=== PATIENT | female | born 1950 | race Caucasian/White ===

== ENCOUNTER → 2018-04-29 12:12 | Outpatient (CLI) | payer MEDICARE, MEDICAID, SELFPAY ==
--- NOTE | 2018-04-29 12:17 | BI_ITS ---
MAMMOGRAPHY - BILATERAL SCREENING REASON FOR EXAM: Female, 67 years old. Routine annual screening examination. PERTINENT HISTORY: Grandmother with breast cancer. TECHNIQUE: Digital bilateral breast zuleika (3D mammographic acquisition) in the CC and MLO projections. 2-D mediolateral oblique (MLO) and craniocaudad (CC) views of both breasts were obtained. CAD: Full Field Digital Mammography with Computer Added Detection was performed. COMPARISON: None. Baseline examination. FINDINGS: Breast Composition: There are scattered areas of fibroglandular density. There are no dominant masses or suspicious calcifications. Small benign-appearing bilateral axillary lymph nodes. A tissue clip marker is seen in the deep inferior portion of the left breast. No other significant abnormalities are identified. BI/SCREENING MAMM (CAD), BILAT IMPRESSION: Negative screening mammogram. Yearly followup mammogram recommended. (A) ASSESSMENT CATEGORY: BIRADS Category 2: Benign. A letter regarding these results will be sent to the patient by the facility within 30 days. Approximately 10% of breast cancers are not detected by mammography. A normal mammogram should not delay biopsy of a clinically suspicious abnormality. [id number] Electronically Signed: Heriberto Otero MD at 13:39 EDT Tel [phone], Service support ,
--- NOTE | 2018-04-29 12:46 | BD_ITS ---
STUDY: DUAL ENERGY X-RAY ABSORPTIOMETRY / DXA REASON FOR EXAM: Female, 67 years old. The patient is postmenopausal. Loss of height. TECHNIQUE: Bone Mineral Density (BMD) measurements of lumbar spine and bilateral hips were obtained. COMPARISON: None. FINDINGS: Lumbar Spine (L1-L4): g/cm2 (1.292) / T-score (0.8) / Z-score (2.4) Findings are suggestive of normal bone density with a low fracture risk. Left Femur Total: g/cm2 (0.829) / T-score (-1.4) / Z-score (-0.2) Left Femoral Neck: g/cm2 (0.751) / T-score (-2.1) / Z-score (-0.6) Right Femur Total: g/cm2 (0.876) / T-score (-1.0) / Z-score (0.2) Right Femoral Neck: g/cm2 (0.785) / T-score (-1.8) / Z-score (-0.3) BD/Dexa Bone Density Study IMPRESSION: The patient is considered osteopenic as outlined below according to World Obie Organization (WHO) criteria with a moderate fracture risk. . Reference Information: The T-score is the number of standard deviations above or below the standard which is normal for young adults at their peak bone mineral density. The World Health Organization (WHO) interprets the T-scores as follows: Above -1 Normal bone density Between -1 and -2.5 Osteopenia Equal to / or below -2.5 Osteoporosis As a practical clinical guideline, osteopenia may be graded as follows: Mild -1 through -1.5 Moderate -1.6 through -2.0 Severe -2.1 through -2.4 The Z-score is the number of standard deviations above or below age-matched controls. A Z-score of less than -1.5 would be considered abnormal. References: 1. NIH Osteoporosis and Related Bone Diseases http://www.osteo.org 2. International Society for Clinical Densitometry http://www.iscd.org 3. National Osteoporosis Foundation http://www.nof.org Electronically Signed: Heriberto Otero MD at 8:44 EDT Tel [phone], Service support ,
== END ==
PROVIDERS: Family Provider Family Medicine; PCP Family Medicine; Visit Provider Nurse Practitioner Women's Health
DX: Z12.31 Encounter for screening mammogram for malignant neoplasm of breast (principal); Z78.0 Asymptomatic menopausal state
CPT/HCPCS: 77063; 77067; 77080

== ENCOUNTER → 2018-11-18 | Outpatient (CLI) | payer MEDICARE, MEDICAID, SELFPAY ==
--- NOTE | 2018-11-18 08:30 | RAD_ITS ---
STUDY: X-RAY - ESOPHAGUS (BARIUM SWALLOW) WITH FLUOROSCOPY REASON FOR EXAM: Female, 68-year-old.. Dysphagia. TECHNIQUE: 18 view(s) of the esophagus were obtained following swallowing of barium. FLUOROSCOPY TIME (if supplied): (0:33) minutes/seconds COMPARISON: None. FINDINGS: There is no demonstrated esophageal foreign body. There is no demonstrated stricture or mucosal abnormality. There is a very small sliding hiatal hernia with gastroesophageal reflux. The patient ingested a 12 mm tablet of barium without any difficulty. Normal visualized aortic arch and descending thoracic aorta. Normal visualized pulmonary parenchyma. Normal visualized osseous structures of the thorax. RAD/Esophagus Only IMPRESSION: Small sliding hiatal hernia with gastric esophageal reflux. Electronically Signed: Heriberto Otero, at 15:26 EDT , Service support ,
== END | disposition home or self-care (01) ==
LOC: RAD 08:23
PROVIDERS: Family Provider Family Medicine; PCP Family Medicine; Referring Provider Nurse Practitioner Adult Health; Visit Provider Nurse Practitioner Adult Health
DX: R13.12 Dysphagia, oropharyngeal phase (principal)
CPT/HCPCS: 74220

== ENCOUNTER → 2019-09-14 | Outpatient (CLI) | payer MEDICARE, MEDICAID, SELFPAY ==
[2017-10-23 08:53] VITALS: BMI 34.0
== END | disposition home or self-care (01) ==
LOC: LABSPEC 13:02
PROVIDERS: PCP Family Medicine; Visit Provider Family Medicine
DX: R30.0 Dysuria (principal); R50.9 Fever, unspecified
CPT/HCPCS: 87086; 87088

== ENCOUNTER → 2019-11-20 15:00 | Outpatient (CLI) | payer MEDICARE, MEDICAID, SELFPAY ==
--- NOTE | 2019-11-20 15:03 | CT_ITS ---
STUDY: CT ABDOMEN AND PELVIS WITH CONTRAST REASON FOR EXAM: Female, 69 years old. LLQ PAIN SHARP INTO GROIN RADIATION DOSAGE (If Supplied By Facility): CTDIvol = ( 17.745 ) mGy, DLP = ( 904.03 ) mGycm TECHNIQUE: Transaxial images were obtained from the dome of the diaphragm to the symphysis pubis with oral contrast. Oral and amp; IV Readi-CAT and amp; 100mL Isovue-300 was administered. Sagittal and coronal images were reconstructed. Individualized dose optimization techniques were used for this CT. COMPARISON: None. FINDINGS: The visualized lung bases are unremarkable. The visualized portions of the heart are within normal limits. There is decreased attenuation of the liver consistent with steatosis. The patient is status post cholecystectomy. Normal spleen. Normal pancreas. Normal bilateral adrenal glands. Normal right kidney. Normal left kidney. There is a small hiatal hernia. Normal small intestine. Normal colon. The appendix is visualized and appears normal. Normal abdominal aorta. Normal inferior vena cava. There is borderline retroperitoneal lymphadenopathy with enlarged nodes no greater than 10mm in the short axis diameter. Normal urinary bladder. There is a 3.7 cm x 2.9 cm cyst in the right ovary. Findings suggestive of a 3.1 cm x 2.8 cm fibroid in the lower uterine segment. Normal abdominal wall. There are diffuse degenerative changes of the visualized lumbar spine. Grade 1 spondylolisthesis of L5 on S1 and spondylolysis of L5 vertebrae. CT/Abdomen/Pelvis WITH Contrast IMPRESSION: Fatty infiltration of the liver. 3.7 cm x 2.9 cm right ovarian cyst. Fatty infiltration of the liver. Electronically Signed: Heriberto Otero, at 15:36 EDT , Service support ,
[2019-11-20 15:25] LABS: CREATININE FINGERSTICK 0.8 mg/dL (0.55-1.02)
== END ==
PROVIDERS: PCP Family Medicine; Referring Provider Family Medicine; Visit Provider Family Medicine
DX: R10.814 Left lower quadrant abdominal tenderness (principal)
CPT/HCPCS: 74177; Q9967

== ENCOUNTER → 2020-08-11 11:46 | Outpatient (CLI) | payer MEDICARE, MEDICAID, SELFPAY ==
--- NOTE | 2020-08-11 | EMB_PTH ---
PATIENT: SORAYA RAY LOC: [facility]#:[id number] AGE/SX: 74/F ROOM: RE08/11/[address]: CAROL Phillips : 1950 BED: DIS: SPEC #: [id number] RECD: 08/11/20 14:47 STATUS: CARMEN DYAN #: [id number] GENEVA: 08/11/20 00:[address]: Aura Brownlee NP DEPT: SURGICAL PATHOLOGY RECD BY: Ashley Ruelas ENTERED: 08/12/20 06:42 SP TYPE: ENDOM BX/C ENRIKE DR: Dr. Aman Umana MD Tissues: Endometrium, NOS Procedures: Surgery Specimen Level IV HEADER OPERATION: Endometrial biopsy PRE-OP DIAGNOSIS: Thickened lining TISSUE SUBMITTED: Endometrial biopsy MICROSCOPIC DIAGNOSIS Endometrium, biopsy: Scant strips of benign endometrium, squamous mucosa and endocervical mucosa. See comment. AM:blair 08/15/2020 COMMENT The specimen primarily consists of blood. Clinical correlation is suggested. MICROSCOPIC DESCRIPTION Slides are reviewed. GROSS DESCRIPTION Received is one container labeled with the patient's name and not further designated. The specimen consists of multiple irregular and elongated fragments of red-holt soft tissue that in aggregate measure 2 x 1 x 0.1 cm. The specimen is totally submitted in one cassette. / AM:blair 08/12/20 TC:5 CPT: 35394
[2020-08-11 11:11] VITALS: BMI 32.7
[2020-08-12 13:46] LABS: Cancer Antigen 125 12.3 U/mL (0.0-38.1); Carcinoembryonic Antigen 1.3 ng/mL (0.0-4.7)
== END ==
PROVIDERS: PCP Family Medicine; Visit Provider Nurse Practitioner Women's Health
DX: R93.89 Abnormal findings on diagnostic imaging of other specified body structures (principal); N83.201 Unspecified ovarian cyst, right side
CPT/HCPCS: 36415; 82378; 86304; 88305

== ENCOUNTER → 2020-09-16 10:19 | Outpatient (CLI) | payer MEDICARE, MEDICAID, SELFPAY ==
[2020-08-11 11:11] VITALS: BMI 32.7
--- NOTE | 2020-09-16 10:21 | US_ITS ---
STUDY: ULTRASOUND OF THE FEMALE PELVIS - COMPLETE REASON FOR EXAM: Female, 70 years old. Ovarian cyst LMP: The patient is postmenopausal. TECHNIQUE: Transabdominal and Transvaginal TECHNICAL QUALITY: Adequate. COMPARISON: Comparison is made with prior CT scan of the abdomen and pelvis dated 11/20/2019. FINDINGS: The uterus is anteverted and is in a midline position. The uterus measures 7 cm x 4.7 cm x 2.9 cm. Normal uterine cervix. The endometrium measures 5 mm in thickness, and is hyperechoic. There is no demonstrated endometrial mass. 2 uterine fibroids are seen. The larger measures 1.6 cm x 1.7 cm x 1.2 cm. The myometrium is of heterogeneous echotexture. I.U.D. - The patient does not have an I.U.D. The right ovary is visualized. The right ovary measures 4.7 cm x 4.6 cm x 3.4 cm. Within it, there is a 4 cm x 4 cm x 3.1 cm cyst. This has increased slightly in size as compared to prior CT scan. There is no visualized right adnexal mass or complex lesion. There is normal arterial and normal venous vascularity. The left ovary is visualized. The left ovary measures 1.6 cm x 2.5 cm x 1 cm. There is no left ovarian cyst or ovarian mass. There is no visualized left adnexal mass or complex lesion. There is normal arterial and normal venous vascularity. There is no fluid in the cul-de-sac. The pre void volume of the bladder was 268 ml. US/Transvaginal Non- IMPRESSION: Heterogeneous appearance of the uterus with 2 fibroids. 4 cm x 4 cm x 3.1 cm right ovarian cyst Electronically Signed: Heriberto Otero MD at 12:25 EST , Service support ,
--- NOTE | 2020-09-16 10:21 | US_ITS ---
STUDY: ULTRASOUND OF THE FEMALE PELVIS - COMPLETE REASON FOR EXAM: Female, 70 years old. Ovarian cyst LMP: The patient is postmenopausal. TECHNIQUE: Transabdominal and Transvaginal TECHNICAL QUALITY: Adequate. COMPARISON: Comparison is made with prior CT scan of the abdomen and pelvis dated 11/20/2019. FINDINGS: The uterus is anteverted and is in a midline position. The uterus measures 7 cm x 4.7 cm x 2.9 cm. Normal uterine cervix. The endometrium measures 5 mm in thickness, and is hyperechoic. There is no demonstrated endometrial mass. 2 uterine fibroids are seen. The larger measures 1.6 cm x 1.7 cm x 1.2 cm. The myometrium is of heterogeneous echotexture. I.U.D. - The patient does not have an I.U.D. The right ovary is visualized. The right ovary measures 4.7 cm x 4.6 cm x 3.4 cm. Within it, there is a 4 cm x 4 cm x 3.1 cm cyst. This has increased slightly in size as compared to prior CT scan. There is no visualized right adnexal mass or complex lesion. There is normal arterial and normal venous vascularity. The left ovary is visualized. The left ovary measures 1.6 cm x 2.5 cm x 1 cm. There is no left ovarian cyst or ovarian mass. There is no visualized left adnexal mass or complex lesion. There is normal arterial and normal venous vascularity. There is no fluid in the cul-de-sac. The pre void volume of the bladder was 268 ml. US/Pelvic (Non ) IMPRESSION: Heterogeneous appearance of the uterus with 2 fibroids. 4 cm x 4 cm x 3.1 cm right ovarian cyst Electronically Signed: Heriberto Otero MD at 12:25 EST , Service support ,
== END ==
PROVIDERS: PCP Family Medicine; Referring Provider Nurse Practitioner Women's Health; Visit Provider Nurse Practitioner Women's Health
DX: N83.201 Unspecified ovarian cyst, right side (principal)
CPT/HCPCS: 76830; 76856

== ENCOUNTER 2020-09-22 11:52 | Outpatient (RCR) | payer MEDICARE, SELFPAY ==
[2020-08-11 11:11] VITALS: BMI 32.7
[2020-09-22] MEDS: COVID-19 VACC, MRNA(PFIZER)/PF 30 MCG/0.3 ML SYRINGE IM (11:10)
[2020-10-13] MEDS: COVID-19 VACC, MRNA(PFIZER)/PF 30 MCG/0.3 ML SYRINGE IM (11:10)
== END 2020-12-20 23:59 ==
LOC: IMMUN 11:52
PROVIDERS: PCP Family Medicine; Visit Provider Family Medicine
DX: Z23 Encounter for immunization (principal)
CPT/HCPCS: 0001A; 0002A; 91300

== ENCOUNTER → 2020-11-17 14:02 | Outpatient (CLI) | payer MEDICARE, MEDICAID, SELFPAY ==
[2020-08-11 11:11] VITALS: BMI 32.7
--- NOTE | 2020-11-17 14:11 | US_ITS ---
STUDY: ULTRASOUND OF THE FEMALE PELVIS - COMPLETE REASON FOR EXAM: Female, 70 years old. ovarian cyst LMP: Menopause TECHNIQUE: Transabdominal and Transvaginal TECHNICAL QUALITY: Adequate. COMPARISON: 09/16/2020 FINDINGS: The uterus is anteverted and is in a midline position. The uterus measures 7.0 x 3.9 x 3.3 cm. Normal uterine cervix. The endometrium measures 4 mm in thickness, and is hyperechoic. There is no demonstrated endometrial mass. 1.2 cm hypoechoic mass within the fundus the uterus consistent with an intramural fibroid. I.U.D. - The patient does not have an I.U.D. The right ovary is visualized. The right ovary measures 4.9 x 4.4 x 4.3 cm. There is no change in 4.0 cm oval anechoic mass with increased through transmission the right ovary consistent with a physiologic cyst, par ovarian cyst, or cystadenoma. Follow-up ultrasound is recommended in one year. There is no visualized right adnexal mass or complex lesion. There is normal arterial and normal venous vascularity. The left ovary is visualized. The left ovary measures 1.1 x 0.8 x 0.5 cm. There is no left ovarian cyst or ovarian mass. There is no visualized left adnexal mass or complex lesion. There is normal arterial and normal venous vascularity. There is no fluid in the cul-de-sac. The pre void volume of the bladder was ml. The post void volume of the bladder was ml. Polycystic ovary disease: No. US/Transvaginal Non- IMPRESSION: No change in the 4.0 cm right ovarian physiologic cyst, par ovarian cyst, or cystadenoma. Follow-up ultrasound is recommended in one year. Electronically Signed: Kip Márquez MD at 9:58 EDT Tel , Service support ,
--- NOTE | 2020-11-17 14:11 | US_ITS ---
STUDY: ULTRASOUND OF THE FEMALE PELVIS - COMPLETE REASON FOR EXAM: Female, 70 years old. ovarian cyst LMP: Menopause TECHNIQUE: Transabdominal and Transvaginal TECHNICAL QUALITY: Adequate. COMPARISON: 09/16/2020 FINDINGS: The uterus is anteverted and is in a midline position. The uterus measures 7.0 x 3.9 x 3.3 cm. Normal uterine cervix. The endometrium measures 4 mm in thickness, and is hyperechoic. There is no demonstrated endometrial mass. 1.2 cm hypoechoic mass within the fundus the uterus consistent with an intramural fibroid. I.U.D. - The patient does not have an I.U.D. The right ovary is visualized. The right ovary measures 4.9 x 4.4 x 4.3 cm. There is no change in 4.0 cm oval anechoic mass with increased through transmission the right ovary consistent with a physiologic cyst, par ovarian cyst, or cystadenoma. Follow-up ultrasound is recommended in one year. There is no visualized right adnexal mass or complex lesion. There is normal arterial and normal venous vascularity. The left ovary is visualized. The left ovary measures 1.1 x 0.8 x 0.5 cm. There is no left ovarian cyst or ovarian mass. There is no visualized left adnexal mass or complex lesion. There is normal arterial and normal venous vascularity. There is no fluid in the cul-de-sac. The pre void volume of the bladder was ml. The post void volume of the bladder was ml. Polycystic ovary disease: No. US/Pelvic (Non ) IMPRESSION: No change in the 4.0 cm right ovarian physiologic cyst, par ovarian cyst, or cystadenoma. Follow-up ultrasound is recommended in one year. Electronically Signed: Kip Márquez MD at 9:58 EDT Tel , Service support ,
== END ==
PROVIDERS: PCP Family Medicine; Referring Provider Nurse Practitioner Women's Health; Visit Provider Nurse Practitioner Women's Health
DX: N83.201 Unspecified ovarian cyst, right side (principal)
CPT/HCPCS: 76830; 76856

== ENCOUNTER 2021-09-12 09:36 | Outpatient (CLI) | payer MEDICARE, SELFPAY ==
--- NOTE | 2021-09-12 09:39 | BI_ITS ---
MAMMOGRAPHY - BILATERAL SCREENING REASON FOR EXAM: Female, 71 years old. Routine annual screening examination. PERTINENT HISTORY: Grandmother with breast cancer. TECHNIQUE: Digital bilateral breast daina (3D mammographic acquisition) in the CC and MLO projections. 2-D mediolateral oblique (MLO) and craniocaudad (CC) views of both breasts were obtained. CAD: Full Field Digital Mammography with Computer Added Detection was performed. COMPARISON: Comparison is made with prior study 04/29/2018. FINDINGS: Breast Composition: There are scattered areas of fibroglandular density. There are no dominant masses or suspicious calcifications. Stable benign-appearing bilateral axillary lymph nodes. No other significant abnormalities are identified. There has been no significant change since the prior study. BI/SCRN MAMM (CAD)W/DAINA BILAT IMPRESSION: Stable bilateral screening mammogram. Yearly follow-up mammogram recommended. (A) ASSESSMENT CATEGORY: BIRADS Category 2: Benign. A letter regarding these results will be sent to the patient by the facility within 30 days. Approximately 10% of breast cancers are not detected by mammography. A normal mammogram should not delay biopsy of a clinically suspicious abnormality. [id number] Electronically Signed: Heriberto Otero MD at 10:39 EST ,
== END 2021-09-12 23:59 | disposition home or self-care (01) ==
LOC: OPBI 09:37
PROVIDERS: PCP Family Medicine; Referring Provider Nurse Practitioner Women's Health; Visit Provider Nurse Practitioner Women's Health
DX: Z12.31 Encounter for screening mammogram for malignant neoplasm of breast (principal)
CPT/HCPCS: 77063; 77067

== ENCOUNTER 2021-10-11 10:11 | Outpatient (CLI) | payer MEDICARE, MEDICAID, SELFPAY ==
[2021-10-11 12:16] LABS: Absolute Lymphocyte Count 1.22 X10^3/uL (0.83-4.51); Absolute Neutrophil Count 4.6 X10^3/uL (2.0-7.7); Basophil# 0.05 X10^3/uL; Basophil% 0.8 % (0-1); Eosinophil# 0.17 X10^3/uL; Eosinophils% 2.6 % (0-5); Hematocrit 42.6 % (37-47); Hemoglobin 13.5 g/dL (12.0-15.0); Lymphocyte # 1.22 X10^3/ul (0.83-4.51); Lymphocyte % 18.6 % (19-41); Mean Corp Hgb Conc 31.7 g/dL (32-36); Mean Corpuscular Hgb 31.6 pg (27.0-32.0); Mean Corpuscular Volume 99.8 fL (81-99); Mean Platelet Vol. 9.7 fl (6.2-12.0); Monocyte# 0.47 X10^3/uL; Monocyte% 7.2 % (0-10); NRBC Flagged by Analyzer 0 % (0-5); Neutrophil # 4.63 X10^3/uL (2.7-7.7); Neutrophil % 70.5 % (47-70); Platelet Count 327 K/mm3 (150-450); RBC Distribution Width CV 12.7 % (11.6-14.6); RBC Distribution Width SD 46.9 fl (35.1-43.9); Red Blood Count 4.27 M/mm3 (4.2-5.4); White Blood Count 6.6 K/mm3 (4.4-11.0)
[2021-10-11 12:45] LABS: Anion Gap 4 (5-15); BUN 14 mg/dL (7-18); BUN/Creat Ratio 17.4 RATIO (10-20); Calcium,Total 8.8 mg/dL (8.5-10.1); Chloride 106 mmol/L (98-107); Cholesterol 260 mg/dL (200); EST Glomerular Filtration Rate 75 mL/min (>60); Est Glom Filt Rate - Afr Amer 91 mL/min (>60); Glucose 90 mg/dL (74-106); High Density Lipoprotein 73 mg/dL; Potassium 4.4 mmol/L (3.5-5.1); Sodium Level 140 mmol/L (136-145); Thyroid Stim Hormone (TSH) 1.08 uIU/mL (0.358-3.74); Triglycerides 191 mg/dL; Very Low Density Lipoprotein 38 mg/dL (5-40)
== END 2021-10-11 23:59 | disposition home or self-care (01) ==
LOC: MFPLAB 10:15
PROVIDERS: PCP Family Medicine; Referring Provider Family Medicine; Visit Provider Family Medicine
DX: Z00.00 Encounter for general adult medical examination without abnormal findings (principal); F32.A Depression, unspecified; E78.00 Pure hypercholesterolemia, unspecified
CPT/HCPCS: 36415; 80048; 80061; 84443; 85025

== ENCOUNTER → 2021-11-22 | Outpatient (CLI) | payer MEDICARE, MEDICAID, SELFPAY ==
[2021-11-22 15:47] LABS: Cholesterol 172 mg/dL (200); High Density Lipoprotein 72 mg/dL; Triglycerides 114 mg/dL; Very Low Density Lipoprotein 23 mg/dL (5-40)
== END | disposition home or self-care (01) ==
LOC: MFPLAB 11:15
PROVIDERS: PCP Family Medicine; Visit Provider Family Medicine
DX: E78.00 Pure hypercholesterolemia, unspecified (principal)
CPT/HCPCS: 36415; 80061

== ENCOUNTER 2021-12-01 12:26 | Emergency (ER) | payer MEDICARE, MEDICAID, SELFPAY ==
[2021-12-01 12:26] VITALS: BP 194/101; PULSE 81; RESP 16; TEMP 36.8; O2SAT 99; BMI 36.6
--- NOTE | 2021-12-01 12:34 | CT_ITS ---
STUDY: CT BRAIN WITHOUT CONTRAST REASON FOR EXAM: Female, 71 years old. Head injury due to a fall. Laceration overlying the posterior aspect of the skull. RADIATION DOSAGE (If Supplied By Facility): CTDIvol = ( 44.99 ) mGy, DLP = ( 829.85 ) mGycm TECHNIQUE: Transaxial CT imaging of the brain was performed without administration of intravenous contrast material. Individualized dose optimization techniques were used for this CT. COMPARISON: No relevant priors. FINDINGS: Minimal soft tissue changes overlying the superior aspect of the right occipital bone. Normal calvarium. There is mild cerebral atrophy with widening of the extra-axial spaces and ventricular dilatation. Normal white matter tracts of the cerebral hemispheres. Normal basal ganglia and thalami. Normal brainstem. Normal cerebellum. There is no intracranial hemorrhage. There are no findings of an acute ischemic infarction. Normal visualized paranasal sinuses. CT/Brain/Head without Contrast IMPRESSION: Chronic involutional changes of the brain. Electronically Signed: Heriberto Otero MD at 13:12 EDT ,
--- NOTE | 2021-12-01 12:34 | CT_ITS ---
STUDY: CT CERVICAL SPINE WITHOUT CONTRAST REASON FOR EXAM: Female, 71 years old. Neck pain/trauma RADIATION DOSAGE (If Supplied By Facility): CTDIvol = ( 21.62 ) mGy, DLP = ( 390.09 ) mGycm TECHNIQUE: High resolution transaxial imaging was performed without contrast material. Sagittal and coronal images were reconstructed. Individualized dose optimization techniques were used for this CT. COMPARISON: None FINDINGS: Normal craniovertebral junction. There are degenerative changes of the anterior atlantoaxial articulation. Normal odontoid process. There is straightening of the normal cervical lordosis. Normal vertebral bodies and posterior osseous elements. C2-3: Normal endplates. Normal disc height and morphology. Normal central canal and intervertebral neuroforamina. C3-4: Moderate degree of disc space narrowing and spondylosis. Uncovertebral arthrosis. Mild to moderate degree of bilateral neural foraminal stenosis. C4-5: Moderate degree of disc space narrowing and spondylosis. Uncovertebral arthrosis. Mild degree of bilateral neural foraminal stenosis. C5-6: Moderate degree of disc space narrowing and spondylosis. No significant stenosis is seen. C6-7: Mild degree of disc space narrowing. No evidence of stenosis. C7-T1: Normal endplates. Normal disc height and morphology. Normal central canal and intervertebral neuroforamina. Scarring at both lung apices. CT/Spine Cervical without Contras IMPRESSION: Multilevel degenerative changes, as described above. Electronically Signed: Heriberto Otero MD at 13:14 EDT ,
--- NOTE | 2021-12-01 13:13 | RAD_ITS ---
STUDY: X-RAY STERNUM REASON FOR EXAM: Female, 71 years old. Fall/pain TECHNIQUE: 2 view(s) of the sternum were obtained. COMPARISON: None. FINDINGS: Normal bilateral sternoclavicular articulations. Normal manubrium. Normal sternomanubrial joint. Normal sternal body and xiphoid process. There is no demonstrated fracture of the sternum. Normal visualized anterior ribs. Normal visualized lungs. The soft tissue structures are unremarkable. RAD/Sternum min 2 Views IMPRESSION: Normal x-ray examination of the sternum. Electronically Signed: Heriberto Otero MD at 14:02 EDT ,
--- NOTE | 2021-12-01 13:15 | ED.VIS.FALL ---
HPI HPI - Fall History of Present Illness Chief Complaint: Fall Informant: patient Occured/Mechanism Occurred: Today Mechanism/Context: Yes same level fall and Yes trip Usually ambulates: Without assistance Pain/Injury Location: head vs. ground Pain Location: head, neck and chest Current Severity: Mild Maximum Severity: Severe Worsened by: nothing Relieved by: nothing Associated Symptoms Associated Symptoms: Negative for Parasthesias, Weakness, Loss of function, Inability to ambulate, Loss of consciousness and Amnesia Narrative Narrative: Patient was letting out a family member's dog, it is a Rottweiler and it was on a line, the dog immediately ran out to michael something and made the line taught, and as it came by her it clipped her legs out from underneath of her and she fell back to her head versus the ground. She was dazed, sustained a laceration to the back of the scalp, she says her neck hurts a little and the middle of her chest hurts a little. She did not lose consciousness, no amnesia, no other pain or injuries. PFSH PFS Medical History Anxiety and depression Arthritis Back problem Breast lump in female Gastrointestinal problem GERD (gastroesophageal reflux disease) IBS (irritable bowel syndrome) Home Medications omeprazole 40 mg capsule,delayed release 40 mg PO QDAY 10/23/17 [History Last Taken Unknown] trazodone 50 mg tablet 50 mg PO QHS PRN 10/06/18 [History Last Taken Unknown] duloxetine 30 mg capsule,delayed release 30 mg PO BID 09/12/21 [History Last Taken Unknown] Allergy/AdvReac Type Severity Reaction Status Date / Time bupropion [From Wellbutrin] Allergy Hives Verified 12/01/21 12:34 Family History Father Heart disease Depression (emotion) Suicide attempt Grandfather Heart disease Sister Arthritis Grandmother Breast cancer Surgical History Hx of cholecystectomy Social History current occupational status: retired Smoking Status: Never smoker alcohol intake: current details: social substance use type: does not use caffeine: Yes what type of physical activity do you participate in: none seatbelt use: always do you feel safe at home: Yes additional social history: sig other- Jeovany DOES NOT USE ASPIRIN DOES USE IBUPROFEN ROS ROS ED Constitutional Constitutional ED: Denies chills or fever(s) Eyes Eyes: Denies change in vision or diplopia ENT ENT ED: Denies ear pain, epistaxis, facial pain or rhinorrhea Cardiovascular Cardiovascular: Reports chest pain; Denies palpitations Respiratory/Chest Respiratory/Chest: Denies cough or dyspnea Gastrointestinal Gastrointestinal: Denies abdominal pain, diarrhea, melena, nausea or vomiting Genitourinary Genitourinary ED: Denies dysuria or hematuria Musculoskeletal Musculoskeletal: Reports neck pain; Denies back pain or extremity pain Integumentary Denies abscess, Abrasions, laceration or rash Neurologic Neurologic: Reports headache(s); Denies confusion, paresthesias or weakness EXAM Physical Exam Const Vital Signs: 12/01/21 12:26 12/01/21 12:34 12/01/21 15:10 Temperature 98.3 F Temperature Source Oral Pulse Rate 81 81 Respiratory Rate 16 16 Respiratory Effort Normal Non-Labored Respiratory Depth Normal Respiratory Pattern Normal Blood Pressure 194/101 H 167/109 H Blood Pressure Mean 132 128 Pulse Ox 99 98 Oxygen Delivery Method Room Air Room Air Positive well nourished and well developed General Appearance ED: well developed and NAD HEENT Reports TM's clear and nasal mucous membranes and turbinates normal HEENT Narrative: Hematoma and tenderness at the occiput with a small partial-thickness laceration, no active bleeding, no depression or crepitance. Mildly tender at the angle of the left mandible, there is no signs of trauma here, no swelling, she has no malocclusion or trismus and is able to open her mouth without any issue. No intraoral or dental injury. No other areas of facial tenderness, midface stable no infraorbital hypoesthesia. trauma Face and Sinus: facial tenderness Tympanic Membrane ED: Yes TM's clear Eyes PERRL and EOMs intact bilaterally Visual Acuity: other Other Details: no entrapment or pain with extraocular movements Neck full ROM and supple Neck Narrative: Mildly tender in the middle of the neck, not at the superior aspect nor at C7-T1, nor below this throughout the midline. Patient was rolled off of the backboard, and C-spine stabilization was maintained throughout the examination, and at the end we placed her in a c-collar. General: tenderness Chest Wall inspection of chest normal and palpation of chest normal Chest: symmetrical chest wall rise and tenderness sternum (Middle without crepitance or deformity or signs of trauma); Negative for crepitus Resp normal respiratory effort and clear to auscultation bilaterally Percussion: other equal BS bilat Cardio no murmurs Rate: regular rate Rhythm: regular rhythm GI normal to inspection, nondistended, normoactive bowel sounds, soft to palpation and non-tender Back/Spine normal ROM Cervical Spine: Negative for cervical spine tenderness Thoracic Spine / Upper Back: Negative for thoracic spinal tenderness Lumbar Spine / Lower Back: Negative for lumbar spinal tenderness Extremity normal to inspection and full ROM General Extremety ED: Negative for tenderness Neuro oriented x3, CN's II-XII intact bilaterally, moves all extremities, no focal motor deficits and no sensory deficits noted Abdirizak Coma Scale: document GCS findings Spontaneous Obeys Commands Oriented 15 Sensorium / Orientation: awake and alert Psych mental status grossly normal and thought process normal Skin Skin Narrative: 1.5 cm partial-thickness curvilinear clean occipital scalp laceration without crepitance or depression Lesions: no lesions Rashes: no rashes MDM MDM MDM Narrative Medical decision making narrative: 2 view x-ray of the sternum and 1 view chest x-ray are normal my interpretation, 5 view x-ray of the left mandible are negative for any acute fractures. I am at a low suspicion for fractures here I do not think she needs a CT of the face and she has no tenderness elsewhere and no midfacial instability/trauma. CT of the head and cervical spine were normal, I was able to clear her neck without difficulty, we reexamined her scalp, she does have a 1.5 cm scalp laceration that we repaired see the procedure note. Radiography Diagnostic Testing: Clinical Impression(s) from Imaging Studies Brain CT 12/01/21 12:34 IMPRESSION: Chronic involutional changes of the brain. Electronically Signed: Heriberto Otero MD at 13:12 EDT , Cervical Spine CT 12/01/21 12:34 IMPRESSION: Multilevel degenerative changes, as described above. Electronically Signed: Heriberto Otero MD at 13:14 EDT , Sternum X-Ray 12/01/21 13:13 IMPRESSION: Normal x-ray examination of the sternum. Electronically Signed: Heriberto Otero MD at 14:02 EDT , Chest X-Ray 12/01/21 13:35 IMPRESSION: No acute abnormality is seen. Electronically Signed: Heriberto Otero MD at 14:03 EDT , Mandible X-Ray 12/01/21 15:50 IMPRESSION: No acute fracture or subluxation. Electronically Signed: Jonn Otto MD at 16:18 EDT , Procedures Lacerations Occipital scalp: Length: 1.5 cm Depth: Skin Shape: Linear (Curvilinear) Prep: Sterile Conditions and Chlorhexadine Laceration repair: Irrigated, Lidocaine with epi (2cc, 1%) and Local Irrigated (ml): 60 Number of Sutures/Vianey: 2 Suture Information: - (Skin vianey) Discharge Plan Triage Chief Complaint: Fall ED Provider: Thom Conde Dx/Rx/DC Orders Clinical Impression: Closed head injury without loss of consciousness, Occipital scalp laceration, Strain of chest wall, Fall from slip, trip, or stumble Instructions: ED Head Injury (Adult), ED Laceration Scalp Stitches or Vianey Prescriptions: No Action omeprazole 40 mg capsule,delayed release(DR/EC) 40 mg PO QDAY RF: 0 trazodone 50 mg tablet 50 mg PO QHS PRNRF: 0 duloxetine 30 mg capsule,delayed release(DR/EC) 30 mg PO BID RF: 0 Primary Care Provider: Nikhil Cheng Referrals: Nikhil Cheng MD [Primary Care Provider] - 5 Days for suture removal Disposition Disposition: Home, Self Care
--- NOTE | 2021-12-01 13:35 | RAD_ITS ---
STUDY: X-RAY CHEST REASON FOR EXAM: Female, 71 years old. Fall, pain TECHNIQUE: Single PA view of the chest. COMPARISON: None. FINDINGS: The lungs are clear and expanded. There is no demonstrated pleural abnormality. Normal size heart. Normal mediastinum and vanessa. Normal visualized pulmonary arteries. There is atherosclerotic tortuosity of the aortic arch and descending thoracic aorta. There are degenerative changes of the visualized thoracic spine. Normal visualized ribs, clavicles, and shoulders. Fecal material is seen in the colon. RAD/Chest 1 View (Portable) IMPRESSION: No acute abnormality is seen. Electronically Signed: Heriberto Otero MD at 14:03 EDT ,
[2021-12-01 15:10] VITALS: BP 167/109; PULSE 81; RESP 16; O2SAT 98
[2021-12-01] MEDS: Lidocaine 1% /Epi 1:100 (20ml) 20 ML Vial INFILT (15:45)
--- NOTE | 2021-12-01 15:50 | RAD_ITS ---
EXAM: XR MANDIBLE COMPLETE, 4 OR MORE VIEWS CLINICAL INDICATION: left mandible injury TECHNIQUE: Frontal, oblique and lateral views of the mandible. This report was created using [employer] report generation technology. COMPARISON: None. FINDINGS: DENTAL: Impacted right mandibular and maxillary third molars. BONES/JOINTS: Unremarkable. No fracture. No subluxation. No sclerotic or destructive changes observed. SOFT TISSUES: Unremarkable. No soft tissue swelling or gas. No radiopaque foreign body. RAD/Mandible Min 4 Views IMPRESSION: No acute fracture or subluxation. Electronically Signed: Jonn Otto MD at 16:18 EDT ,
== END 2021-12-01 17:31 | disposition home or self-care (01) ==
PROVIDERS: Emergency Provider Emergency Medicine; PCP Family Medicine; Visit Provider Emergency Medicine
DX: S01.01XA Laceration without foreign body of scalp, initial encounter (principal); S29.012A Strain of muscle and tendon of back wall of thorax, initial encounter; W18.09XA Striking against other object with subsequent fall, initial encounter; F41.9 Anxiety disorder, unspecified; F32.A Depression, unspecified; Z79.899 Other long term (current) drug therapy; K21.9 Gastro-esophageal reflux disease without esophagitis; K58.9 Irritable bowel syndrome, unspecified; M19.90 Unspecified osteoarthritis, unspecified site
CPT/HCPCS: 12001; 70110; 70450; 71045; 71120; 72125; 99284

== ENCOUNTER → 2022-11-01 | Outpatient (CLI) | payer MEDICARE, MEDICAID, SELFPAY ==
--- NOTE | 2022-11-01 09:21 | BI_ITS ---
MAMMOGRAPHY - BILATERAL SCREENING REASON FOR EXAM: Female, 72 years old. Routine annual screening examination. PERTINENT HISTORY: Grandmother with breast cancer. History of prior left ultrasound-guided breast biopsy. TECHNIQUE: Digital bilateral breast daina (3D mammographic acquisition) in the CC and MLO projections. 2-D mediolateral oblique (MLO) and craniocaudad (CC) views of both breasts were obtained. CAD: Full Field Digital Mammography with Computer Added Detection was performed. COMPARISON: Comparison is made with prior study of September 12, 2021 and April 29, 2018. FINDINGS: Breast Composition: There are scattered areas of fibroglandular density. There are no dominant masses or suspicious calcifications. A tissue clip marker is seen in the deep inferior central portion of the left breast. Stable benign-appearing left axillary lymph nodes. No other significant abnormalities are identified. There has been no significant change since the prior study. BI/SCRN MAMM (CAD)W/DAINA BILAT IMPRESSION: Stable bilateral screening mammogram. Yearly follow-up mammogram recommended. (A) ASSESSMENT CATEGORY: BIRADS Category 2: Benign. A letter regarding these results will be sent to the patient by the facility within 30 days. Approximately 10% of breast cancers are not detected by mammography. A normal mammogram should not delay biopsy of a clinically suspicious abnormality. [id number] Electronically Signed: Heriberto Otero MD at 12:16 EDT ,
== END | disposition home or self-care (01) ==
LOC: OPBI 09:16
PROVIDERS: PCP Family Medicine; Referring Provider Nurse Practitioner Women's Health; Visit Provider Nurse Practitioner Women's Health
DX: Z12.31 Encounter for screening mammogram for malignant neoplasm of breast (principal); Z80.3 Family history of malignant neoplasm of breast
CPT/HCPCS: 77063; 77067

== ENCOUNTER → 2023-04-17 | Outpatient (CLI) | payer MEDICARE, MEDICAID, SELFPAY ==
--- NOTE | 2023-04-17 12:17 | US_ITS ---
INDICATION: pelvic pain EXAMINATION: Ultrasound US Pelvis Non OB Complete With Transvaginal Imaging TECHNIQUE: Transabdominal and transvaginal pelvic ultrasound was performed. Grayscale, spectral waveform, and color flow Doppler evaluation of the adnexa. COMPARISON: Prior study dated: 11/17/2020. FINDINGS: UTERUS: Anteverted. The uterus measures 6.5 x 4.1 x 3.4 cm. Previously noted mass in the fundus of the uterus is not clearly identified at this time. The endometrial stripe measures 3 mm in AP diameter which is within normal limits. RIGHT OVARY: 1.7 x 6.8 x 8.1 cm. There is a large cyst in the right ovary measuring at this time about 7.3 x 6.1 x 7.3 cm. Previously measured 4 cm. There is normal arterial inflow and venous outflow present in the right ovary. LEFT OVARY: Not visualized.. FREE FLUID: None. US/Pelvic w/ Transvaginal IMPRESSION: Right ovarian cyst increased in size since previous examination. Consider MRI with contrast or DIET COUNSELOR consult. Electronically Signed: Fransico Hughes MD at 15:54 EDT ,
== END | disposition home or self-care (01) ==
LOC: OPUS 12:15
PROVIDERS: PCP Family Medicine; Referring Provider Nurse Practitioner Women's Health; Visit Provider Nurse Practitioner Women's Health
DX: N83.201 Unspecified ovarian cyst, right side (principal)
CPT/HCPCS: 76830; 76856

== ENCOUNTER 2023-04-18 12:29 | Outpatient (CLI) | payer MEDICARE, MEDICAID, SELFPAY ==
[2023-04-20 05:08] LABS: Cancer Antigen 125 9.1 U/mL (0.0-38.1); Carcinoembryonic Antigen 0.9 ng/mL (0.0-4.7)
== END 2023-04-18 23:59 | disposition home or self-care (01) ==
LOC: LAB 12:32
PROVIDERS: PCP Family Medicine; Referring Provider Nurse Practitioner Women's Health; Visit Provider Nurse Practitioner Women's Health
DX: N83.201 Unspecified ovarian cyst, right side (principal); R10.2 Pelvic and perineal pain; R93.89 Abnormal findings on diagnostic imaging of other specified body structures; Z12.9 Encounter for screening for malignant neoplasm, site unspecified; Z12.73 Encounter for screening for malignant neoplasm of ovary
CPT/HCPCS: 36415; 82378; 86304

== ENCOUNTER → 2023-05-08 | Outpatient (CLI) | payer MEDICARE, MEDICAID, SELFPAY ==
--- NOTE | 2023-05-08 08:16 | MRI_ITS ---
STUDY: MR PELVIS WITH T WITHOUT CONTRAST REASON FOR EXAM: Female, 72 years old. pelvic pain/right overian cyst TECHNIQUE: Standardized fat and water weighted pulse sequences were obtained in all 3 orthogonal planes, pre-and post contrast administration. clariscan 15ml iv was administered for the contrast portion of the examination. COMPARISON: Pelvic ultrasound 04/17/2023 FINDINGS: Normal urinary bladder. Normal visualized small intestine. Normal visualized colon. There is no pelvic fluid. 7.2 cm round mass of fluid intensity without septation, nodularity, or contrast enhancement superior to the bladder and anterior to the uterus consistent with a right ovarian simple unilocular cyst, likely physiologic cyst, par ovarian cyst, or cystadenoma. However, this is increased in size from 2020, therefore gynecologic oncology consult may be useful. Normal visualized pelvic arteries. Normal osseous structures. Normal abdominal wall. MRI/Pelvis W/WO Contrast IMPRESSION: Enlarging right ovarian unilocular simple cyst, likely physiologic cyst, par ovarian cyst, or cystadenoma. Gynecologic oncology consult may be useful. Electronically Signed: Kip Márquez MD at 18:18 EDT ,
[2023-05-08 08:46] LABS: CREATININE FINGERSTICK 1.2 mg/dL (0.55-1.02)
== END | disposition home or self-care (01) ==
LOC: MRI 08:08
PROVIDERS: PCP Family Medicine; Referring Provider Nurse Practitioner Women's Health; Visit Provider Nurse Practitioner Women's Health
DX: R10.2 Pelvic and perineal pain (principal); N83.201 Unspecified ovarian cyst, right side
CPT/HCPCS: 72197; A9575

== ENCOUNTER → 2023-06-21 | Outpatient (CLI) | payer MEDICARE, MEDICAID, SELFPAY | END | disposition home or self-care (01) | LOC: LABSPEC 12:20 | PROVIDERS: PCP Family Medicine; Referring Provider Obstetrics & Gynecology; Visit Provider Obstetrics & Gynecology | DX: R35.0 Frequency of micturition (principal); R39.15 Urgency of urination | CPT/HCPCS: 87086; 87088 ==

== ENCOUNTER 2023-07-22 06:02 | Day surgery (SDC) | payer MEDICARE, MEDICAID, SELFPAY ==
[2023-07-18 10:22] LABS: Hematocrit 41.5 % (37-47); Mean Corp Hgb Conc 31.3 g/dL (32-36); Mean Corpuscular Hgb 31.4 pg (27.0-32.0); Mean Corpuscular Volume 100.2 fL (81-99); Mean Platelet Vol. 9.2 fl (6.2-12.0); Platelet Count 325 K/mm3 (150-450); RBC Distribution Width CV 12.6 % (11.6-14.6); RBC Distribution Width SD 46.5 fl (35.1-43.9); Red Blood Count 4.14 M/mm3 (4.2-5.4); White Blood Count 7.2 K/mm3 (4.4-11.0)
[2023-07-18 10:38] LABS: ALB/GLOB Ratio 1.1 RATIO (0.9-2.4); AST(SGOT) 22 U/L (15-37); Alanine Aminotransfer ALT/SGPT 24 U/L (13-56); Albumin, Serum 3.6 g/dL (3.2-5.0); Alkaline Phosphatase 100 U/L (45-117); Anion Gap 3 (5-15); BUN 17 mg/dL (7-18); BUN/Creat Ratio 21.5 RATIO (10-20); Calcium,Total 8.6 mg/dL (8.5-10.1); Chloride 106 mmol/L (98-107); Creatinine, Serum 0.79 mg/dL (0.55-1.02); EST Glomerular Filtration Rate 76 mL/min (>60); Est Glom Filt Rate - Afr Amer 92 mL/min (>60); Globulin 3.4 g/dL (2.2-4.2); Glucose 85 mg/dL (74-106); Potassium 4.2 mmol/L (3.5-5.1); Sodium Level 139 mmol/L (136-145)
--- NOTE | 2023-07-21 17:51 | PCM.HP.BLA ---
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 Is patient in pain?: No Allergies bupropion [From Wellbutrin] Allergy (Verified 07/18/23 10:38) Hives Medications omeprazole 40 mg capsule,delayed release 40 mg PO BID 10/23/17 [History Confirmed 07/18/23] citalopram 30 mg capsule 40 mg PO DAILY 03/25/23 [History Confirmed 07/18/23] estradiol 0.01% (0.1 mg/gram) vaginal cream See Rx Instructions vaginal .COMPLEX #42.5 grams 03/25/23 [Rx Confirmed 07/18/23] rosuvastatin 5 mg tablet 5 mg PO DAILY 03/25/23 [History Confirmed 07/18/23] Post menopausal: Yes Patient : No : No PFSH Medical History Anxiety and depression Arthritis Back problem Bladder disease Breast lump in female Gastric reflux Gastrointestinal problem GERD (gastroesophageal reflux disease) High cholesterol History of echocardiogram History of hiatal hernia History of stress test IBS (irritable bowel syndrome) Post-menopausal Wears glasses Surgical History History of tubal ligation Hx of cholecystectomy Family History Father Heart disease Depression (emotion) Suicide attemptGrandfather Heart diseaseSister ArthritisGrandmother Breast cancer Social History current occupational status: retired Smoking Status: Never smoker alcohol intake: current details: social substance use type: does not use caffeine: Yes what type of physical activity do you participate in: none seatbelt use: always do you feel safe at home: Yes additional social history: sig other- Jeovany DOES NOT USE ASPIRIN DOES USE IBUPROFEN HPI BSO CW Details: SORAYA RAY is a 73 year old who presents for preop visit. 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 Female Reproductive History Menopausal Symptoms: No night sweats History 3 Elective abortions Hx Para 3 Spontaneous abortions Hx # Term Pregnancies Ectopic pregnancies Hx # Pregnancies Multiple births # of living children Past Pregnancies Del. Date Name GA/Weeks Outcome Route Bth Weight Gen Labor Lgth Anesthesia Del [facility] Provider FOB Unknown 1972 Tiffanie Unknown 1973 Any Unknown 1976 Woody ROS Const Constitutional: Denies fatigue, night sweats, weight gain or weight loss ENT ENT: Reports system reviewed and no additional complaints, except as documented Cardio Card: Denies chest pain Resp Resp: Denies cough or dyspnea GI GI: Reports as per HPI; Denies abdominal pain, constipation, nausea or vomiting : Reports urinary incontinence and urinary urgency; Denies nipple discharge, urinary frequency, urinary hesitancy, vaginal discharge, vaginal dryness, vaginal odor or vaginal pruritus Musc Musc: Denies arthralgias, back pain or muscle weakness Skin Skin/Breast: Denies alopecia, change in hair, dry skin, breast mass, breast pain, breast skin changes or nipple discharge Neuro Neuro: Reports system reviewed and no additional complaints, except as documented Psych Psych: Reports system reviewed and no additional complaints, except as documented Endo Endo: Denies cold intolerance, excessive sweating, heat intolerance or polydipsia Ozzie/Lymph Hematologic/Lymphatic: Denies easy bleeding, Denies easy bruising and Denies lymphadenopathy Exam Const General: cooperative, healthy appearing, comfortable and no acute distress Orientation: alert [facility] Head: normal to inspection and normocephalic Ears: hearing grossly normal bilaterally and external ears normal Nose: external nose normal and nares normal Face and sinus: normal facial exam Neck Neck: normal visual inspection and no lymphadenopathy Thyroid: thyroid normal Chest Chest palpation & inspection: normal inspection of the chest Resp Effort & Inspection: normal respiratory effort Auscultation: clear to auscultation bilaterally Cardio Rate: regular rate Rhythm: regular rhythm Heart Sounds: S1 normal and S2 normal GI Inspection: normal to inspection and non-distended Palpation: soft and no hepatosplenomegaly Musc Other: gross motor intact no deficits, full bilateral strength Skin General: no rashes or lesions noted Neuro General: patient alert, patient awake, moves all extremities and no focal motor deficits Motor: muscle tone normal throughout Extrem General: normal to inspection and no pedal edema Psych Appearance: grossly normal Mental Status: mental status grossly normal Affect: normal affect Speech and Movement: speech and movement normal Coding Level of Care Code No Charge Diagnoses Right ovarian cyst N83.201 Assessment and Plan Assessment and Plan (1) Right ovarian cyst: Status: Chronic Comment: enlarging, normal CA125 and cea, unilocular. plan laparoscopic BSO cw Plan After discussing the patient's diagnosis and treatment plan options, patient wishes to proceed with surgical management. I have discussed with the patient the risks, benefits, and alternatives of the procedure which include but are not limited to risks of anesthesia, bleeding, infection, possible damage to bowel, bladder, or surrounding vasculature which could lead to additional surgery to evaluate any complications. Patient agrees to procedure and wishes to proceed. ACOG/uptodate references given for additional information regarding procedure.
[2023-07-22] VITALS (23 sets, daily range): BP systolic 84–151; BP diastolic 52–88; PULSE 67–104; RESP 14–22; TEMP 36.3–37.9; O2SAT 65–99; BMI 32.5
--- NOTE | 2023-07-22 | OV_PTH ---
PATHOLOGY RESULTS PATIENT: SORAYA RAY LOC: [facility] [place] U#:[id number] AGE/SX: 73/F ROOM: RE07/22/[address]: Dr. Monica Torres MD : 1950 BED: DIS: 07/22/2023 SPEC #: [id number] RECD: 07/22/23 08:50 STATUS: CARMEN ZAIDI #: [id number] GENEVA: 07/22/23 00:[address]: Monica Torres DEPT: SURGICAL PATHOLOGY RECD BY: Fuentes Holder ENTERED: 07/22/23 10:17 SP TYPE: OVARY OTHR DR: Dr. Nikhil Cheng MD Tissues: Right ovary Procedures: Surgery Specimen Level IV Surgery Specimen Level V HEADER OPERATION: Laparoscopic salpingo-oophorectomy, cytology washings PRE-OP DIAGNOSIS: Right ovarian cysts TISSUE SUBMITTED: Bilateral tubes and ovaries, right ovarian cyst MICROSCOPIC DIAGNOSIS Left fallopian tube and ovary, salpingectomy: Benign paratubal cysts. Ovary with corpora albicantia. Right fallopian tube and ovarian cyst, excision: Serous Cystadenoma of ovary Fallopian tube with benign paratubal cysts. AM:blair 07/23/2023 COMMENT Case has been reviewed in consultation with Dr. Blackman who concurs with the above diagnosis. IDC:HALEL MICROSCOPIC DESCRIPTION Slides are reviewed. GROSS DESCRIPTION Received in fixative is one container labeled with the patient's name and designated bilateral tubes and ovaries, right ovarian cyst. The specimen consists of two pieces. One piece consists of fallopian tube with fimbrial end and possible adjacent ovary and second piece consists of fallopian tube identified as right and right ovarian cyst. The left fallopian tube measures 4.0 cm in length and 0.5 cm in diameter. The fimbrial end is identified. A congested, possible left ovary is present adjacent to it measuring 1.0 x 0.7 x 0.5 cm. The right fallopian tube measures 2.0 cm in length and 0.5 cm in diameter. The fimbrial end is identified. No tubo-ovarian adhesions are noted. Sections reveal unremarkable cut surfaces. The right ovarian cyst measures 6.5 x 5.0 x 1.0 cm. It is collapsed and weighs 2.5 gm. The outer surface is smooth and inked black. The right ovary is replaced by a unilocular cyst. No papillations are identified. The cyst wall measures 0.1 cm in thickness. Half Sole Fitter sections are submitted in five cassettes as follows: 1 & 2 - entire left fallopian tube and possible adjacent ovary, 3??right fallopian tube, 4 & 5 - right ovarian cyst, cystic ovary. / HALLE:blair 07/22/2023 TC:1 CPT: 38154, 69263
--- NOTE | 2023-07-22 | IMM_PTH ---
PATHOLOGY RESULTS PATIENT: SORAYA RAY [place] [facility] [place][id number] AGE/SX: 73/F ROOM: RE07/22/[address]: Dr. Monica Torres MD : 1950 BED: DIS: 07/22/2023 SPEC #: [id number] RECD: 07/23/23 14:05 STATUS: CARMEN REQ #: [id number] GENEVA: 07/22/23 00:[address]: Monica Torres DEPT: IMMUNOHISTOCHEMISTRY RECD BY: Emelyn Rodriguez ENTERED: 07/23/23 14:07 SP TYPE: IMMUNO OTHR DR: Dr. Nikhil Cheng MD Tissues: Pelvis, NOS Procedures: Robert Ret (add) CK20 (add) CK5-6 (add) CK7 (add) KI-67 (add) P53 (add) Pankeratin (initial) P40 (add) CD68 (ADD) PHYSICIAN & INSTITUTION [place] [id number] SPECIMEN INFORMATION: Tissue Source: B - Pelvic washings Clinical Info: Right ovarian cysts Specimen Number: [id number] CPT code: 88296, 20828 x8 METHODOLOGY: Deparaffinized sections of prefer/formalin-fixed tissue or PAP/DQ stained slides are incubated with monoclonal/polyclonal antibodies/oligonucleotide probes. Localization is made via biotin free immunoperoxidase method. Appropriate controls are performed and reacted as expected. Results on target cell population are indicated in the following table: RESULTS: ANTIBODY / CLONE RESULT Block B AE1-3 (AE1/AE3/PCK26) positive, rare CK7 (OV-TL12/30) positive, rare CK20 (KS20.8) negative CD68 (KP-1) negative CALRET (polyclonal) negative CK5-6 (D5 & 1684) positive P40 (BC28) negative P53 (DO-7) negative, null pattern Ki-67 (30-9) negative These tests were developed and their performance characteristics determined by [facility]. They may not have been cleared or approved by the U.S. Food and Drug Administration. The FDA has determined that such clearance or approval is not necessary. The above immunohistochemical/dualISH markers are ordered and reviewed by the Pathologist. INTERPRETATION: B. Pelvic washings (cell block): No evidence of malignancy. AM:blair 07/25/2023
--- NOTE | 2023-07-22 | FLU_PTH ---
PATHOLOGY RESULTS PATIENT: SORAYA RAY LOC: [facility] [place][id number] AGE/SX: 73/F ROOM: RE07/22/[address]: Dr. Monica Torres MD : 1950 BED: DIS: 07/22/2023 SPEC #: [id number] RECD: 07/22/23 10:15 STATUS: CARMEN REJuan Pablo #: [id number] GENEVA: 07/22/23 00:[address]: Monica Torres DEPT: CYTOLOGY RECD BY: Fuentes Holder ENTERED: 07/22/23 10:16 SP TYPE: Fluid OTHR DR: Dr. Nikhil Cheng MD Tissues: Pelvis, NOS Pelvis, NOS Procedures: Special Stain Group II Surgery Specimen Level IV Cytospin Fluid HEADER OPERATION: Cytology washings PRE-OP DIAGNOSIS: Right ovarian cysts TISSUE SUBMITTED: A - Pelvic washings, B - Pelvic washings DIAGNOSIS CYTOLOGY A. Pelvic washings (cytospin and cell block): Negative for malignant cells. B. Pelvic washings (cytospin and cell block): Negative for malignant cells. See comment. AM:blair 07/23/2023 COMMENT B. Immunohistochemistry ([id number]) supports the above diagnosis. Please correlate with corresponding surgical case [id number]. CYTOLOGY STUDY Slides are reviewed. CYTOLOGY GROSS A - Received is 15 ml of light pink cloudy fluid labeled with the patient's name and and designated per the requisition as pelvis. Submitted for cytology preparation including cell block. B - Received is 40 ml of cloudy opaque fluid labeled with the patient's name and and designated per the requisition as pelvis. Submitted for cytology preparation including cell block. / blair 07/22/2023 TC:5 CPT:
--- OUTSIDE RECORDS SUMMARY | 2023-07-22 06:06 | XMS RPT_ITS | CCD ---
Author Name Unknown Address [address] [place] [address] Organization [facility] Care Team Providers Care [employer] Name Role Phone Darrin Umana MD Primary Care Provider DARRIN UMANA Primary Care Unavailable JENNIE CH Referring Unavailable DARRIN UMANA Primary Care Unavailable JENNIE CH Attending Unavailable ETHEL BELTRÁN Referring Unavailable DARRIN UMANA Primary Care Unavailable ANDERINA WARE Attending Unavailable ETHEL BELTRÁN Attending Unavailable DARRIN UMANA Primary Care Unavailable Allergies Allergy Classification Reported Allergen(s) Allergy Type Date of Onset Reaction(s) Facility (4 sources) buPROPion; Translations: [BUPROPION HCL] Drug Allergy 03-24-2010 [facility] (4 sources) Citalopram; Translations: [CITALOPRAM HYDROBROMIDE] Drug Allergy 03-24-2010 [facility] Medications Completed/Discontinued Medications Medication Drug Class(es) Dates Sig (Normalized) Sig (Original) citalopram 40 mg oral tablet (3 sources) Serotonin Reuptake Inhibitor Start: 01-28-2023 take 1 tablet by mouth once citalopram (CELEXA) 40 mg tablet Take 1 tablet by mouth every afternoon. 0 01/28/2023 Active Problems Active Problems Problem Classification Problem Date Documented Da te Episodic/Chronic Abdominal hernia (1 source) Diaphragmatic hernia without obstruction or gangrene; Translations: [Hiatal hernia] Onset: Episodic Disorders of lipid metabolism (3 sources) Pure hypercholesterolemia; Translations: [Pure hypercholesterolemia, unspecified] Onset: 8 03-24-2010 Chronic Diverticulosis and diverticulitis (3 sources) Diverticulosis of colon; Translations: [Diverticulosis of large intestine without perforation or abscess without bleeding] 05-01-2010 Chronic Esophageal disorders (4 sources) Gastroesophageal reflux disease; Translations: [Gastro-esophageal reflux disease without esophagitis] Onset: 3 05-14-2023 Chronic Hemorrhoids (3 sources) Hemorrhoids; Translations: [Unspecified hemorrhoids] 05-01-2010 Episodic Menopausal disorders (3 sources) Menopausal symptom; Translations: [Menopausal and female climacteric states] 05-01-2010 Chronic Mood disorders (6 sources) Chronic depressive personality disorder; Translations: [Dysthymic disorder] Onset: 0 03-24-2010 Chronic Other gastrointestinal disorders (1 source) Other dysphagia; Translations: [Esophageal dysphagia] Onset: 4 Episodic Other injuries and conditions due to external causes (2 sources) Aspiration into respiratory tract; Translations: [Unspecified foreign body in respiratory tract, part unspecified causing other injury, initial encounter] 05-14-2023 Episodic Other nervous system disorders (3 sources) Carpal tunnel syndrome; Translations: [Carpal tunnel syndrome, unspecified upper limb] Onset: 7 03-24-2010 Chronic Other nutritional; endocrine; and metabolic disorders (1 source) Obesity, unspecified; Translations: [Obesity, Class I, BMI 30-34.9] Onset: 4 Chronic Other screening for suspected conditions (not mental disorders or infectious disease) (7 sources) Patient encounter status; Translations: [Encounter for screening for malignant neoplasm of colon] Onset: 5 05-14-2023 Episodic Unclassified (3 sources) PMH - PAST MEDICAL HISTORY OF 03-24-2010 Past or Other Problems Problem Classification Problem Date Documented Da te Episodic/Chronic Other bone disease and musculoskeletal deformities (3 sources) Osteopenia; Translations: [Other specified disorders of bone density and structure, unspecified site] Onset: 08-27-2013 08-27-2013 Episodic Other connective tissue disease (3 sources) Plantar fascial fibromatosis; Translations: [Plantar fascial fibromatosis] Onset: 01-26-2009 05-01-2010 Episodic Other connective tissue disease (3 sources) Pain in limb; Translations: [Pain in unspecified limb] Onset: 01-31-2009 05-01-2010 Episodic Other connective tissue disease (3 sources) Calcaneal spur; Translations: [Calcaneal spur, unspecified foot] Onset: 02-18-2009 05-01-2010 Episodic Other connective tissue disease (3 sources) Pain in right lower limb; Translations: [Pain in right leg] Onset: 02-01-2012 02-01-2012 Episodic Residual codes; unclassified (3 sources) Insomnia; Translations: [Insomnia, unspecified] Onset: 01-26-2009 05-01-2010 Episodic Spondylosis; intervertebral disc disorders; other back problems (6 sources) Low back pain; Translations: [Low back pain radiating to right leg] Onset: 02-01-2012 02-01-2012 Episodic Results Test Name Value Interpretation Reference Range Facil ity Vital Signs Date Time Vital Sign Value Performing Clinician Faci lity 06-28-2023 14:10-0500 Diastolic blood pressure 75 mm[Hg] Jennie Ch MD Work Phone: [facility] 06-28-2023 14:10-0500 Heart rate 70 /min Jennie Ch MD Work Phone: [facility] 06-28-2023 14:10-0500 SaO2% (BldA) [Mass fraction] 99 % Jennie Ch MD Work Phone: [facility] 06-28-2023 14:10-0500 Systolic blood pressure 181 mm[Hg] Jennie Ch MD Work Phone: [facility] 06-28-2023 13:53-0500 Body temperature 97.3 [degF] Jennie Ch MD Work Phone: [facility] 06-28-2023 13:53-0500 Respiratory rate 14 /min Jennie Ch MD Work Phone: [facility] 06-28-2023 12:39-0500 Body height 152.4 cm Jennie Ch MD Work Phone: [facility] 06-28-2023 12:39-0500 Body weight 74.84 kg Jennie Ch MD Work Phone: [facility] 05-14-2023 14:41-0400 Body height 152.4 cm Ethel Beltrán MD Work Phone: [facility] 05-14-2023 14:41-0400 Body temperature 99.19 [degF] Ethel Beltrán MD Work Phone: [facility] 05-14-2023 14:41-0400 Body weight 77.2 kg Ethel Beltrán MD Work Phone: [facility] 05-14-2023 14:41-0400 Diastolic blood pressure 74 mm[Hg] Ethel Beltrán MD Work Phone: [facility] 05-14-2023 14:41-0400 Heart rate 69 /min Ethel Beltrán MD Work Phone: [facility] 05-14-2023 14:41-0400 SaO2% (BldA) [Mass fraction] 97 % Ethel Beltrán MD Work Phone: [facility] 05-14-2023 14:41-0400 Systolic blood pressure 140 mm[Hg] Ethel Beltrán MD Work Phone: [facility] Encounters Encounter Date Encounter Type Care Provider Facility Start: 07-19-2023 ambulatory DARRIN UMANA Fac ility:[facility] Start: 07-16-2023 End: 07-17-2023 ambulatory DARRIN UMANA Facility:[facility] Start: 06-28-2023 End: 06-28-2023 ambulatory ETHEL BELTRÁN Facility:[facility] Start: 06-28-2023 End: 06-28-2023 Subsequent hospital visit by physician Jennie Ch MD Work Phone: Gastroenterology Procedures Date Procedure Procedure Detail Performing Clinician Start: 06-28-2023 Colonoscopy flx dx w/collj spec when pfrmd Ethel Beltrán MD Work Phone: Start: 06-28-2023 Esophagogastroduodenoscopy transoral diagnostic Ethel Beltrán MD Work Phone: Start: 12-15-2023 Colonoscopy Jennie Ch MD Work Phone: Start: 03-14-2016 Colonoscopy Ethel Beltrán MD Work Phone: Start: 03-03-2015 Lipid 1996 panel - Serum or Plasma Gabby Beltrán MD Work Phone: Plan of Treatment Date Care Activity Detail Author Start: 06-28-2033 Screening for malignant neoplasm of colon [facility] Start: 03-14-2026 Colonoscopy Colonoscopy [facility] Start: 03-14-2026 Colorectal Cancer Screening Colorectal Cancer Screening [facility] Start: 03-15-2023 Covid-19 Vaccine () Covid-19 Vaccine () [facility] Start: 03-15-2023 Influenza vaccination Influenza Vaccine (#1) [facility] Start: 07-15-2022 Advance Directive Discussion Advance Directive Discussion [facility] Start: 12-05-2020 Diabetes Screening Diabetes Screening [facility] Start: 03-03-2020 Lipid 1996 panel - Serum or Plasma Lipid Screening [facility] Start: 03-03-2020 Lipid panel Lipid Screening [facility] Start: 2017 Pneumococcal Vaccine: 65+ (1 - PCV) Pneumococcal Vaccine: 65+ (1 - PCV) [facility] Start: 2017 Pneumococcal Vaccine: 65+ (1 of 1 - PCV) Pneumococcal Vaccine: 65+ (1 of 1 - PCV) [facility] Start: 03-03-2016 Mammography Mammogram Screening [facility] Start: 03-03-2016 Screening for malignant neoplasm of breast Mammogram Screening [facility] Start: 2012 RSV Vaccine (1 - 1-dose 60+ series) RSV Vaccine (1 - 1-dose 60+ series) [facility] Start: 11-26-2006 Urine microalbumin profile DTaP,Tdap,Td Vaccine (1 - Tdap) [facility] Start: 2002 Shingrix Vaccine (1 of 2) Shingrix Vaccine (1 of 2) [facility] Start: 1997 Cologuard (FIT-DNA) Cologuard (FIT-DNA) [facility] Start: [address] Colonography [facility] Start: 1997 Fecal Occult Blood Fecal Occult Blood [facility] Start: 1997 Screening for malignant neoplasm of colon [facility] Start: 1997 Sigmoidoscopy Sigmoidoscopy [facility] Start: 1970 Hepatitis C Screening Hepatitis C Screening [facility] Start: 1970 Hepatitis C screening Hepatitis C Screening [facility] End: 05-14-2024 EGD DIAGNOSTIC EGD DIAGNOSTIC Endoscopy Routine Gastroesophageal reflux disease, unspecified whether esophagitis present 1 Occurrences starting 05/14/2023 until 05/14/2024 [facility] Work Phone: Immunizations Immunization Date Immunization Notes Care Provider Fa cili 04-26-2016 influenza, injectabl e, quadrivalent, preservative free Ethel Beltrán MD Work Phone: [facility] Work Phone: 04-26-2016 influenza virus vaccine, unspecified formulation Ethel Beltrán MD Work Phone: [facility] 04-14-2012 influenza virus vaccine, unspecified formulation Ethel Beltrán MD Work Phone: [facility] 11-25-2006 tetanus and diphther ia toxoids, adsorbed, preservative free, for adult use (2 Lf of tetanus toxoid and 2 Lf of diphtheria toxoid) Ethel Beltrán MD Work Phone: [facility] Work Phone: 12-28-1983 tetanus and diphther ia toxoids, adsorbed, preservative free, for adult use (2 Lf of tetanus toxoid and 2 Lf of diphtheria toxoid) Ethel Beltrán MD Work Phone: [facility] Work Phone: 02-07-1973 typhoid vaccine, unspecified formulation Ethel Beltrán MD Work Phone: [facility] Work Phone: 01-28-1973 tetanus and diphther ia toxoids, adsorbed, preservative free, for adult use (2 Lf of tetanus toxoid and 2 Lf of diphtheria toxoid) Ethel Beltrán MD Work Phone: [facility] Work Phone: 01-24-1973 trivalent poliovirus vaccine, live, oral Ethel Beltrán MD Work Phone: [facility] Work Phone: 01-24-1973 typhoid vaccine, unspecified formulation Ethel Beltrán MD Work Phone: [facility] Work Phone: 01-24-1973 vaccinia (smallpox) vaccine, diluted Ethel Beltrán MD Work Phone: [facility] Work Phone: Payers Date Payer Category Payer Medicare [employer]NA MEDICARE [employer] GOLD PLUS [id number] 2018-Present [phone] [address] [address] [place] [address] HMO [id number] 2018 Private Health Insurance [id number] 2017 Medicaid MEDICAID [facility] MEDICAID [id number] 2017-Present [phone] [address] [place] [address] Medicaid [id number] 2017 Medicaid [id number] Social History Date Type Detail Facility Tobacco smoking stat us NHIS Never smoked tobacco [facility] Start: 07-21-2020 End: 06-28-2023 Alcohol intake Current drinker of alcohol (finding) [facility] Start: 07-21-2020 End: 05-14-2023 [facility] Start: 07-21-2020 End: 05-14-2023 Tobacco use panel [facility] National Score (1-10 0), lower number is lower risk 67 [facility] Start: 1950 Sex Assigned At Not on file [facility] Clinical Notes 02-01-2012 to 07-19-2023 Katt Keys RN - 06/28/2023 1:53 PM Zeny Dave RN - 06/28/2023 12:35 PM ESTSedation Documentation - Franklin Rojas RN - 06/28/2023 1:23 PM ESTPatient Instructions Note Date & Type Note Facility 07-19-2023 Note HNO ID: [id number] Author: TAWNY FORRESTER RN Service: ? Author Type: Registered Nurse Type: Progress Notes Filed: 07/19/2023 13:29 Note Text: Name: Amelia Fiore [facility]CF#: [id number] Date: 07/19/2023 ESOPHAGEAL MANOMETRY TEST Indication: Hiatal Hernia Pain Assessment: No pain is present. Sour taste in mouth: The patient has been NPO since last evening. A local anesthetic 1 cc 2% Viscous Lidoccaine was instilled into the left nares. The patient was intubated the left nares using a 36 sensor high resolution circumferential solid state manometry catheter The esophageal manometry test was completed. The patient tolerated the test without difficulty. .Tawny Forrester RN [facility] 06-28-2023 Nurse Note AMBULATORY PATIENT EDUCATION NOTE TOPIC: GI PROCEDURES: Colonoscopy with or without biopsies based on clinical findings Esophagogastroduodenoscopy(EGD) with or without biopies based on clinical findings, removal of polyps or lesions READINESS TO LEARN INSTRUCTION PROVIDED TO: Patient, readness to learn accessed prior to procedure and Family member COGNITIVE ABILITY: Alert and oriented PTED MOTIVATION TO LEARN: Eager FAMILY SUPPORT: None - Unavailable/disinterested IPATIENT LEARNS BEST BY: Individual Instruction Written Instruction - Hand-outs Verbal Instruction FACTORS AFFECTING LEARNING: None PHYSICAL LIMITATIONS AFFECTING LEARNING: None LEARNING RESPONSE METHOD OF INSTRUCTION: Individual instruction PATIENT / FAMILY RESPONSE: Verbalizes understanding of: WORSENING CONDITION-Signs and symptoms of a worsening condition that warrant a call to the physician FOLLOW-UP PLAN: Complete - No need for follow-up SUPPLEMENTAL MATERIAL: Procedure Discharge Instructions REFERRAL (RECOMMENDATION): None PRE OP LEARNING ASSESSMENT PROCEDURE/SURGERY: GI PROCEDURES: Colonoscopy and EGD READINESS TO LEARN COGNITIVE ABILITY: Alert and oriented MOTIVATION TO LEARN: Interested FAMILY SUPPORT: None - Unavailable/disinterested PATIENT LEARNS BEST BY: Individual Instruction FACTORS AFFECTING LEARNING: None PHYSICAL LIMITATIONS AFFECTING LEARNING: None Electronically Signed By: Zeny Mei RN In Department: GASTROENTEROLOGY documented in this encounter [facility] 06-28-2023 Miscellaneous Notes Colon started Egd complete documented in this encounter [facility] 05-14-2023 Note HNO ID: [id number] Author: Jamia Cartwright MD, PhD Service: ? Author Type: Physician Type: Progress Notes Filed: 05/14/2023 4:41 PM Note Text: [facility] Gastroenterology [facility] Hepatology 05/14/2023 Amelia Fiore 72 year old female Referring physician or PCP: SELF Darrin Umana MD Referred by * to the [facility] for opinion regarding * . My final recommendations will be communicated by way of shared Medical Record for internal providers or letter via the [employer] for external providers. SUBJECTIVE: HPI: Amelia Fiore is a 72 year old female with PMHx ovarian cyst, GERD, recurrent aspirations, and depression. Here to establish care and follow up for her GERD. Patient has been having reflux symptoms. She has work-up in 2016 including upper endoscopy that shows large hiatal hernia. She also reports doing esophagram was unremarkable. Since that time she was put on omeprazole 20 mg twice daily as well as famotidine 20 mg daily. She improved but her symptoms recently worsened over the last few months including worsening reflux, sore throat, throat clearing, bitter taste, and coughing. She has been adjusting her diet as well as sleeping on 2 pillows. She is denying any dysphagia or odynophagia but reports choking especially with liquids. No previous aspiration pneumonia. She denied any previous neurology disorder such as Parkinson's or strokes. EGD 2016: Findings: The examined esophagus was normal. A small hiatus hernia was present. Patchy mildly erythematous mucosa was found in the gastric antrum. Biopsies were taken with a cold forceps for histology. Estimated blood loss was minimal. The examined duodenum was normal. Impression: - Normal esophagus. - Small hiatus hernia. - Erythematous mucosa in the antrum. Biopsied. - Normal examined duodenum. Colonoscopy 2016: Findings: A 4 mm polyp was found in the rectum. The polyp was sessile. The polyp was removed with a cold biopsy forceps. Resection and retrieval were complete. Estimated blood loss was minimal. Impression: - One 4 mm polyp in the rectum. Resected and retrieved. Pathology: FINAL DIAGNOSIS 1. Gastric antrum, biopsy (A) - Gastric antral and oxyntic mucosa with no significant diagnostic alteration. - No histomorphologic evidence of Helicobacter pylori organisms. 2. Rectal polyp, biopsy (B) - Hyperplastic polyp. Review Of Systems A 14 point ROS is negative except as outlined above. PAST MEDICAL HISTORY Diagnosis Date Chronic depressive personality disorder Diaphragmatic hernia without mention of obstruction or gangrene Diverticulosis of colon (without mention of hemorrhage) Dysphagia Excessive or frequent menstruation Heavy periods resolved PMH - PAST MEDICAL HISTORY OF disc generation Symptomatic menopausal or female climacteric states Unspecified hemorrhoids without mention of complication PAST SURGICAL HISTORY Procedure Laterality Date COLONOSCOP W/ OR W/O [facility] SPEC 03/14/16 Colonoscopy [facility] COLONOSCOPY 04/18 [facility] EGD W/O OR W/BRUSH/WASH 05/23/2010 EGD EGD W/O OR W/BRUSH/WASH 03/14/16 EGD mac HYSTEROSCOPY, DIAGNOSTIC (SEPARATE Hysteroscopy L'SCOPE DX W/WO BRUSHINGS/WASHINGS 1996 Laparoscopy - lysis of adhesions, DR. RO CARVER FALLOPIAN TUBE Tubal ligation PAST SURGICAL HISTORY OF 06/18, [place] rt. shoulder spur/repair PAST SURGICAL HISTORY OF 2014 breast bx - benign REMOVAL GALLBLADDER 1977 Cholecystectomy Social History Tobacco Use Smoking status: Never Smokeless tobacco: Never Vaping Use Vaping Use: Never used Substance Use Topics Alcohol use: Yes Comment: socially Drug use: No escitalopram oxalate (LEXAPRO) 20 mg tablet Take 1 tablet by mouth once daily. venlafaxine XR (EFFEXOR XR) 37.5 mg tr24 Take 37.5 mg by mouth once daily. nortriptyline (PAMELOR) 10 mg capsule Take one capsule two hours before bed, each night. (Patient not taking: Reported on 05/04/2020 ) traZODone (DESYREL) 50 mg tablet Take 50 mg by mouth daily at bedtime. Omeprazole 40 mg capsule Take 40 mg by mouth once daily. ALLERGIES Allergen Reactions Celexa [Citalopram * Didn't work Wellbutrin [Bupropi* [place] poorly OBJECTIVE: LMP 03/18/2006 No weight on file for this encounter. Gen: Well appearing, seated upright in no discomfort, AAOX3 HEENT: PERRLA, eOMI, No icterus, no pallor, no oral lesions Neck: No thyromegaly, palpable lymphadenopahty, JVD CVS: S1S2+, NSR, No m/r/g RS: Non labored respiration, b/l air entry equal, no added BS Abdo: soft, non distended, non tender,no palpable hepatosplenomegaly, BS normoactive Neuro: b/l cranial nerves II-XII grossly intact, non focal Musc: No joint swelling, tenderness Extrem:warm ,well perfused, no pedal edema Integ: Warm, intact, anicteric ASSESSMENT 72-year-old female patient with GERD, hiatal hernia who is here for follow-up on refl (more content not included)... [facility] 05-14-2023 Instructions Ethel Beltrán MD - 05/14/2023 3:11 PM EDT Images from the original note were not included. Bowel Preparation Instructions for: Golytely, Nulytely, Trilyte or Colyte (polyethylene glycol 3350 and electrolytes) IF YOU DO NOT FOLLOW THESE DIRECTIONS, YOUR COLONOSCOPY WILL BE CANCELLED. [place] Instructions: Your bowel must be empty so that your doctor can clearly view your colon. Follow all of the instructions in this handout EXACTLY as they are written. Do NOT eat any solid food the ENTIRE day before your colonoscopy. Drink only clear liquids. Buy your bowel preparation at least 5 days before your colonoscopy. TRANSPORTATION on the Day of Your Exam A responsible person MUST be present with you at Check In prior to your colonoscopy and REMAIN in the endoscopy area until you are discharged. You are NOT ALLOWED to drive, take a taxi or bus, or leave the Endoscopy Center ALONE. If you do not have a responsible new car driver (family member or friend) with you to take you home, your exam cannot be done with sedation and will be cancelled. Please bring a list of all of your current medications, including any Over-the Counter medications with you. Medications If you take insulin, diabetic medications or blood thinners such as Coumadin (warfarin), Plavix (clopidogrel), Ticlid (ticlopidine hydrochloride), Agrylin (anagrelide), Xarelto (Rivaroxaban), Pradaxa (Dabigatran), Eliquis (Apixaban), and Effient (Prasugrel). You MUST call the doctors who orders those medicines for instructions on altering the dosage before your colonoscopy. All other medications should be taken the day of the exam with a sip of water including ASPIRIN. Five (5) Days Before Your Colonoscopy Do NOT take medicines that stop diarrhea - such as Imodium, Kaopectate, or Pepto Bismol. Do NOT take fiber supplements - such as Metamucil, Citrucel, or Perdiem. Do NOT take products that contain iron - such as multi-vitamins (the label lists what is in the products). Do NOT take Vitamin E. Buy the prescription bowel preparation solution at your local pharmacy or drugstore pharmacy. 06/2019 Bowel Preparation Instructions for: Golytely, Nulytely, Trilyte or Colyte (polyethylene glycol 3350 and electrolytes) Three (3) Days Before Your Colonoscopy Do NOT eat high-fiber foods - such as popcorn, beans, seeds (flax, sunflower, quinoa), multigrain bread, nuts, salad/vegetables, or fresh and dried fruit. One (1) Day Before Your Colonoscopy Only drink clear liquids the ENTIRE DAY before your colonoscopy. Do NOT eat any solid foods. Drink at least 8 ounces of clear liquids every hour after waking up. The clear liquids you can drink include: Clear Liquid (NO RED LIQUIDS) DO NOT DRINK Gatorade, Pedialyte or Powerade Clear broth or bouillon Coffee or tea (no milk or non-dairy creamer) Carbonated and non-carbonated soft drinks Dipak-Aid or other fruit flavored drinks Strained fruit juices (no pulp) Jell-O, popsicles, hard candy Water Alcohol Milk or non-dairy creamers Noodles or vegetables in soup Juice with pulp Liquid you cannot see through Do not use tobacco/vaping products The bowel preparation solution will be consumed in two parts. Mix the solution the evening before your colonoscopy and refrigerate before drinking. You may add the flavor pack that came with the bowel preparation. Do NOT add ice, sugar or any other flavorings to the solution. Part 1 At 6:00 PM - Evening before your colonoscopy Drink an 8-oz glass of bowel preparation every 10 minutes for a total of 8 glasses. You may continue to drink clear liquids until midnight. Part 2 On the day of your colonoscopy you may drink clear liquids up to (three) 3 hours before your procedure. 4 1/2 hours before your colonoscopy Drink an 8-oz glass of bowel preparation every 10 minutes for a total of 8 glasses. Fifteen (15) minutes later, drink an 8-oz glass of clear liquids every 15 minutes for a total of 2 glasses. You may continue to drink clear liquids up to (three) 3 hours before your exam. 2 06/2019 documented in this encounter [facility] 05-14-2023 History of Presen t illness Narrative [facility] Gastroenterology & Hepatology 05/14/2023 Amelia Fiore 72 year old female Referring physician or PCP: SELF Darrin Umana MD Referred by * to the [facility] for opinion regarding * . My final recommendations will be communicated by way of shared Medical Record for internal providers or letter via the [employer] for external providers. SUBJECTIVE: HPI: Amelia Fiore is a 72 year old female with PMHx ovarian cyst, GERD, recurrent aspirations, and depression. Here to establish care and follow up for her GERD. Patient has been having reflux symptoms. She has work-up in 2016 including upper endoscopy that shows large hiatal hernia. She also reports doing esophagram was unremarkable. Since that time she was put on omeprazole 20 mg twice daily as well as famotidine 20 mg daily. She improved but her symptoms recently worsened over the last few months including worsening reflux, sore throat, throat clearing, bitter taste, and coughing. She has been adjusting her diet as well as sleeping on 2 pillows. She is denying any dysphagia or odynophagia but reports choking especially with liquids. No previous aspiration pneumonia. She denied any previous neurology disorder such as Parkinson's or strokes. EGD 2016: Findings: The examined esophagus was normal. A small hiatus hernia was present. Patchy mildly erythematous mucosa was found in the gastric antrum. Biopsies were taken with a cold forceps for histology. Estimated blood loss was minimal. The examined duodenum was normal. Impression: - Normal esophagus. - Small hiatus hernia. - Erythematous mucosa in the antrum. Biopsied. - Normal examined duodenum. Colonoscopy 2016: Findings: A 4 mm polyp was found in the rectum. The polyp was sessile. The polyp was removed with a cold biopsy forceps. Resection and retrieval were complete. Estimated blood loss was minimal. Impression: - One 4 mm polyp in the rectum. Resected and retrieved. Pathology: FINAL DIAGNOSIS 1. Gastric antrum, biopsy (A) - Gastric antral and oxyntic mucosa with no significant diagnostic alteration. - No histomorphologic evidence of Helicobacter pylori organisms. 2. Rectal polyp, biopsy (B) - Hyperplastic polyp. Review Of Systems A 14 point ROS is negative except as outlined above. PAST MEDICAL HISTORY Diagnosis Date Chronic depressive personality disorder Diaphragmatic hernia without mention of obstruction or gangrene Diverticulosis of colon (without mention of hemorrhage) Dysphagia Excessive or frequent menstruation Heavy periods resolved PMH - PAST MEDICAL HISTORY OF disc generation Symptomatic menopausal or female climacteric states Unspecified hemorrhoids without mention of complication PAST SURGICAL HISTORY Procedure Laterality Date COLONOSCOP W/ OR W/O [facility] SPEC 03/14/16 Colonoscopy mac COLONOSCOPY 04/18 [facility] EGD W/O OR W/BRUSH/WASH 05/23/2010 EGD EGD W/O OR W/BRUSH/WASH 03/14/16 EGD mac HYSTEROSCOPY, DIAGNOSTIC (SEPARATE Hysteroscopy L'SCOPE DX W/WO BRUSHINGS/WASHINGS 1996 Laparoscopy - lysis of adhesions, DR. STARR LIGZEENAT FALLOPIAN TUBE Tubal ligation PAST SURGICAL HISTORY OF 06/18, [place] rt. shoulder spur/repair PAST SURGICAL HISTORY OF 2014 breast bx - benign REMOVAL GALLBLADDER 1977 Cholecystectomy Social History Tobacco Use Smoking status: Never Smokeless tobacco: Never Vaping Use Vaping Use: Never used Substance Use Topics Alcohol use: Yes Comment: socially Drug use: No escitalopram oxalate (LEXAPRO) 20 mg tablet Take 1 tablet by mouth once daily. venlafaxine XR (EFFEXOR XR) 37.5 mg tr24 Take 37.5 mg by mouth once daily. nortriptyline (PAMELOR) 10 mg capsule Take one capsule two hours before bed, each night. (Patient not taking: Reported on 05/04/2020 ) traZODone (DESYREL) 50 mg tablet Take 50 mg by mouth daily at bedtime. Omeprazole 40 mg capsule Take 40 mg by mouth once daily. ALLERGIES Allergen Reactions Celexa [Citalopram * Didn't work Wellbutrin [Bupropi* [place] poorly OBJECTIVE: LMP 03/18/2006 No weight on file for this encounter. Gen: Well appearing, seated upright in no discomfort, AAOX3 HEENT: PERRLA, eOMI, No icterus, no pallor, no oral lesions Neck: No thyromegaly, palpable lymphadenopahty, JVD CVS: S1S2+, NSR, No m/r/g RS: Non labored respiration, b/l air entry equal, no added BS Abdo: soft, non distended, non tender,no palpable hepatosplenomegaly, BS normoactive Neuro: b/l cranial nerves II-XII grossly intact, non focal Musc: No joint swelling, tenderness Extrem:warm ,well perfused, no pedal edema Integ: Warm, intact, anicteric ASSESSMENT 72-year-old female patient with GERD, hiatal hernia who is here for follow-up on reflux symptoms as well as recurrent aspiration especially with liquids. She is denying any dysphagia or odynophagia. No previous neurology disorders such as Parkinson or stroke. She has been on omeprazole 20 mg twice daily, famotidine 20 mg daily, and recently was put on Carafate every 6 hours. She has colonoscopy back in 2016 that showed only 1 hyperplastic polyp, otherwise no family history of colon cancer. She denied any change in her bowel habit, melena or hematochezia or unintentional weight loss. PLAN 1. EGD for evaluation of reflux esophagitis, hiatal hernia. Obtain biopsy for H. pylori. 2. Patient is due for screening colonoscopy 3. Discontinue famotidine 4. Increase omeprazole to 40 mg twice daily 5. Referral to speech therapy for evaluation of recurrent aspiration Follow up: as needed Ethel Beltrán MD May 14, 2023 2:35 PM TEACHING PHYSICIAN NOTE OF PERSONAL INVOLVEMENT IN CARE I performed a history of the patient and discussed management with the resident team. I reviewed the resident's notes and agree with documented findings and plan of care with my addendum and correction as noted below. Increasing GERD symptoms, may be related to hiatal hernia. Therapy and evaluation as above. Colon cancer screening Jamia Cartwright MD PhD May 14, 2023 4:40 PM documented in this encounter [facility] documented as of this encounter (statuses as of 05/15/2023) [facility]07-20-2012 History of Past illness Narrative* Problem Noted Date Diagnosed Date Resolved Date Abdominal pain, right lower quadrant 02/01/2012 07/18/2012 Routine general medical exam ination at a health care facility 03/24/2010 02/01/2012 Overview: : Established care from Dr. Kee Routine gynecological examination 03/24/2010 02/01/2012 Overview: [facility], [facility] [place] documented as of this encounter (statuses as of 06/29/2023) [facility] Gastroesophageal reflux disease, unspecified whether esophagitis present- Primary Encounter for screening colonoscopy Special screening for malignant neoplasms, colon Aspiration into airway, initial encounter [facility] Diagnosis Gastroesophageal reflux disease, unspecified whether esophagitis present Encounter for screening colonoscopy Special screening for malignant neoplasms, colon [facility] Outpatient Procedure (Routine) - Pending Review Specialty Diagnoses / Procedures Referred By Contac t Referred To Contact [facility] Diagnoses Encounter for screening colonoscopy Procedures COLONOSCOPY SCREENING COLONOSCOPY FLX DX W/COLLJ SPEC WHEN Ethel Harris MD [address] [place] [address] [facility] [place] [address] [place] [address] Referral ID Status Reason Start Date Expiration Date Visits Requested Visits Authorized [id number] Pending Review Auto-Generat ed Referral 3 05/14/2024 1 1 * Outpatient Procedure (Routine) - Pending Review Specialty Diagnoses / Procedures Referred By Vicki t Referred To Contact [facility] Diagnoses Gastroesophageal reflux disease, unspecified whether esophagitis present Procedures EGD DIAGNOSTIC ESOPHAGOGASTRODUODENOSC OPY TRANSORAL DIAGNOSTIC Ethel Beltrán MD [address] [place] [address] [address] Referral ID Status Reason Start Date Expiration Date Visits Requested Visits Authorized [id number] Pending Review Auto-Generat ed Referral 3 05/14/2024 1 1 * Outpatient Procedure (Routine) - Pending Review Specialty Diagnoses / Procedures Referred By Vicki yuan Referred To Contact [facility] Diagnoses Gastroesophageal reflux disease, unspecified whether esophagitis present Procedures EGD DIAGNOSTIC ESOPHAGOGASTRODUODENOSC OPY TRANSORAL DIAGNOSTIC Ethel Beltrán MD [address] [place] [address] [facility] [address] [place] [id number] Referral ID Status Reason Start Date Expiration Date Visits Requested Visits Authorized [id number] Pending Review Auto-Generat ed Referral 3 05/14/2024 1 1 [facility] for referral (narrative)* Outpatient Procedure (Routine) - Closed Specialty Diagnoses / Procedures Referred By Vicki t Referred To Contact [facility] Diagnoses Encounter for screening colonoscopy Procedures COLONOSCOPY SCREENING COLONOSCOPY FLX DX W/COLLJ SPEC WHEN PFRMD Ethel Beltrán MD [address] [place] [address] [facility] [address] [id number] Referral ID Status Reason Start Date Expiration Date V isits Requested Visits Authorized [id number] Closed Auto-Generate d Referral 06/28/2023 07/14/2023 1 1 * Outpatient Procedure (Routine) - Closed Specialty Diagnoses / Procedures Referred By Vicki yuan Referred To Contact [facility] Diagnoses Gastroesophageal reflux disease, unspecified whether esophagitis present Procedures EGD DIAGNOSTIC ESOPHAGOGASTRODUODENOSC OPY TRANSORAL DIAGNOSTIC Ethel Beltrán MD [address] [place] [address] Jennie Ch MD [address] [place] [address] Referral ID Status Reason Start Date Expiration Date V isits Requested Visits Authorized [id number] Closed Auto-Generate d Referral 06/28/2023 07/14/2023 1 1 [facility] for visit Narrative* Outpatient Procedure (Routine) - Closed Specialty Diagnoses / Procedures Referred By Vicki yuan Referred To Contact [facility] Diagnoses Encounter for screening colonoscopy Procedures COLONOSCOPY SCREENING COLONOSCOPY FLX DX W/COLLJ SPEC WHEN PFRMD Ethel Beltrán MD [address] [place] [address] [place] [address] Referral ID Status Reason Start Date Expiration Date V isits Requested Visits Authorized [id number] Closed Auto-Generate d Referral 06/28/2023 07/14/2023 1 1 [facility] Summary Purpose Family History No Family History Records FoundNo Family History Records Found Advance Directives No Advanced Directives Records FoundNo Advanced Directives Records Found Additional Source Comments INFORMATION SOURCE (unrecogn ized section and content) DATE CREATED AUTHOR AUTHOR'S ORGANIZ ATION 07/20/2023 [facility] Source Comments (unrecognize d section and content) In the event this informatio n is protected by the Federal Confidentiality of Alcohol and Drug Abuse Patient Records regulations: The Federal rules restrict any use of the information to criminally investigate or prosecute any alcohol or drug abuse patient.[facility] the event this information is protected by the Federal Confidentiality of Alcohol and Drug Abuse Patient Records regulations: The Federal rules restrict any use of the information to criminally investigate or prosecute any alcohol or drug abuse patient.[facility] Reason for Visit (unrecogniz ed section and content) Care Teams (unrecognized sec tion and content) [employer] Relationship Specialty Start Date End Date Darrin Umana MD PCP - General Family Medicine 12/30/15 FOR RECORDS PERTAINING TO PATIENTS WHO ARE OR HAVE BEEN ENROLLED IN A CHEMICAL DEPENDENCY/SUBSTANCEABUSE PROGRAM, SOME INFORMATION MAY BE OMITTED. This clinical summary was aggregated from multiple sources. Caution should be exercised in using it in the provision of clinical care. This summary normalizes information from multiple sources, and as a consequence, information in this document may materially change the coding, format and clinical context of patient data. In addition, data may be omitted in some cases. CLINICAL DECISIONS SHOULD BE BASED ON THE PRIMARY CLINICAL RECORDS. [employer] [facility]. provides no warranty or guarantee of the accuracy or completeness of information in this document.
[2023-07-22] MEDS: Lactated Ringers 1,000 ML 15 ML IV ×2 (06:40→09:26)
--- NOTE | 2023-07-22 07:32 | PCM.OPRPT ---
Problems Associated Problem List Diagnoses (1) Right ovarian cyst: (2) S/P BSO (bilateral salpingo-oophorectomy): Report of Operation Date of Procedure: 07/22/23 Pre-Operative Diagnosis: see problem list Post-Operative Diagnosis: same Surgery/Procedure Performed:: laparoscopic bilateral salpingoo-ophorectomy washings Description of Surgical Findings:: enlarged right ovary Surgeon: Monica Torres assistant spa director: Ronnie Isabel Type of Anesthesia: General and Local Special Medications: none Specimen's removed: tubes and ovaries Drains: none Estimated Blood Loss (mL): 50 Fluids Replaced: crystalloid Description of Procedure: Patient was taken in the operating room and was placed under general anesthesia was prepped and draped in normal sterile fashion in the dorsal lithotomy position. Bladder was drained of clear urine and SCDs were on preoperatively. Uterus was sounded and a uterine manipulator was placed after dilating. Attention was then paid to the abdominal portion of the procedure and the umbilicus was elevated with towel clamps and injected with Marcaine and after a 12 mm incision was made and the Veress needle was entered into the abdomen confirmed to be intra-abdominal with a low opening pressure of less than 5 mmHg. Abdomen was insufflated with CO2 gas and a 12 mm optical trocar was placed under direct visualization. A right and left lower quadrant 5 mm ports were placed under direct visualization. pelvic washings taken. Uterus was well visualized and bilateral fallopian tubes and ovaries were identified and the bilateral infundibulopelvic ligament were transected across using the LigaSure device followed by transecting across the mesosalpinx to the attachment to the uterine corpus bilaterally the tubes and ovaries were removed without complication. Excellent hemostasis was noted. Specimens were removed through the umbilical port site through a bag without any intra-abdominal spillage of contents. The fascial incision was closed using the Roberto Ricci and an 0 Vicryl. Liver and upper abdomen were visualized notably within normal limits and no other gross abnormalities were seen in the abdomen. All instruments removed from the abdomen after gas was desufflated. Port sites were closed with 3-0 Monocryl Steri's and op sites were applied. All instruments removed from the vagina and patient was awoken and taken recovery in stable condition. Grafts/Implants Used: none Procedure Start Time: :24 Procedure Stop Time: 08:50 Complications none Admit VTE Documentation VTE Present on Admission: No VTE Mechan Device Prophylaxis: SCD's Multi Select Codes Urinary/Genital Urinary/Genital CPT Codes: 73722 Laproscopic BS/O
--- NOTE | 2023-07-22 07:34 | DCINST_ITS ---
Discharge Instructions Diet Discharge Diet: No restrictions Activity Discharge Activity: Return to Normal Activity, May Not Drive (for 2 weeks or while taking narcotic pain meds.), May Shower and May Take a Tub Bath (in 7 days) May resume sexual activity in: 1 week Weight Bearing Status: Full weight bearing Dressing / Incision Call your doctor if your incision/area has: Continuous Slow Oozing, Sudden Increased Bleeding, Increased Pain/ Swelling, Increased Redness and Foul Smelling Discharge Call your doctor if you observe: Fever of 101 or Higher, Using more than 1 pad per hour, Shortness of breath, Chest pain and Uncontrolled pain Suture Line Care: Avoid Pulling/Pushing and Avoid Pinching/Bending Remove Dressing in: 1 week (if present) Cleanse incision/area with: Soap & Water and Keep Dressing Clean & Dry Follow Up Care When: Call to make an appointment with your doctor for a fu/incision check in 1- 2 weeks. Test Results: Test results from this visit will be discussed in further detail at your follow- up appointment, if applicable. Discharge Plan Admission Attending Provider: Monica Torres Primary Care Provider: Nikhil Cheng Discharge Orders/Prescriptions Prescriptions: New oxycodone-acetaminophen [Percocet] 5-325 mg tablet 1 tab PO Q6H PRN (Reason: pain) 7 Days Qty: 10 0RF naproxen [naproxen] 500 mg tablet 500 mg PO BID PRN PRN (Reason: Pain) Qty: 30 1RF Continued omeprazole 40 mg capsule,delayed release(DR/EC) 40 mg PO BID citalopram 30 mg capsule 40 mg PO DAILY rosuvastatin 5 mg tablet 5 mg PO DAILY estradiol 0.01 % (0.1 mg/gram) cream See Rx Instructions vaginal .COMPLEX Qty: 42.5 2RF Rx Instructions: small amount as directed vaginal every other day X 4 weeks then twice a week; Referrals / Follow Up: Nikhil Cheng MD [Primary Care Provider] - Disposition Disposition (needs filled in before D/C Order can be placed): Home, Self Care
[2023-07-22] MEDS: Bupivacaine 0.25% 30 ML Vial (07:52)
[2023-07-22 08:53] LABS: Cytology, Body Fluid / CSF SEE PATHOLOGY REPORT
[2023-07-22] MEDS: Ipratropium/Albuterol Sulfate 3 ML AMPUL.NEB INHALATION (08:58)
[2023-07-22] MEDS: Ondansetron 4 MG/2 ML Vial IM (10:02)
--- NOTE | 2023-07-22 10:46 | SUR.PHASEI ---
STILL ON 4 L/MIN OXYGEN AFTER 2 HOURS IN PACU. DID HAVE DUONEB ON PACU ARRIVAL, SOME OBSTRUCTION WHEN EXTUBATED PER ANESTHESIA, JAYNE PARTIDA OF WHICH DR LOVETT AWARE. VITALS OTHERWISE STABLE. OCCAS COUGH. USING INCENTIVE SPIROMETRY. BOTH NAKITA YU AND DR LOVETT UPDATED. NO NEW ORDERS AT THIS TIME. DAUGHTER, JOSE MANUEL, HAS BEEN UPDATED HOURLY BY THIS RN.
== END 2023-07-22 13:58 | disposition home or self-care (01) ==
LOC: SDC 06:03 → AC 06:03
PROVIDERS: PCP Family Medicine; Referring Provider Obstetrics & Gynecology; Visit Provider Obstetrics & Gynecology
PROC: (CPT 58661; principal; 2023-07-22 07:15)
DX: D27.0 Benign neoplasm of right ovary (principal); N83.8 Other noninflammatory disorders of ovary, fallopian tube and broad ligament; E78.00 Pure hypercholesterolemia, unspecified; F41.9 Anxiety disorder, unspecified; F32.A Depression, unspecified; K21.9 Gastro-esophageal reflux disease without esophagitis; Z79.899 Other long term (current) drug therapy
CPT/HCPCS: 58661; 00840; 36415; 80053; 85027; 86850; 86900; 86901; 88108; 88305; 88307; 88313; 88341; 88342; 93005; 94640; J7120; J2405

== ENCOUNTER 2023-07-31 11:27 | Emergency (ER) | payer MEDICARE, MEDICAID, SELFPAY ==
[2023-07-31 11:29] VITALS: BP 142/94; PULSE 70; RESP 18; TEMP 35.9; O2SAT 100; BMI 33.3
[2023-07-31 11:51] VITALS: BP 142/94; PULSE 70; RESP 18; TEMP 35.9; O2SAT 100
--- NOTE | 2023-07-31 12:14 | CT_ITS ---
EXAM: CT ABDOMEN AND PELVIS WITH INTRAVENOUS CONTRAST CLINICAL INDICATION: post op lower abdomen pain, salpingoophorectomy TECHNIQUE: Helically acquired images were obtained of the abdomen and pelvis with intravenous contrast. This CT exam was performed using one or more of the following dose reduction techniques: automated exposure control, adjustment of the mA and/or kV according to patient size, and/or use of iterative reconstruction technique. CONTRAST: IV 100mL Isovue-370 RADIATION DOSE: CTDIvol = 17.42 mGy, DLP = 833.70 mGy-cm COMPARISON: 11/20/2019 FINDINGS: Exam is markedly limited because of extremely dense barium throughout the right colon and transverse colon, causing extreme degree of streak artifact. LOWER THORAX: Unremarkable. Lung bases are clear. No cardiomegaly. No significant pericardial effusion. ABDOMEN: LIVER: Unremarkable. Homogeneous. No focal mass. GALLBLADDER AND BILE DUCTS: Gallbladder is not seen. No intra- or extrahepatic biliary ductal dilation. PANCREAS: Unremarkable. No focal cystic or solid mass. SPLEEN: Unremarkable. Normal size without focal cystic or solid mass. ADRENALS: Unremarkable. No nodules. KIDNEYS AND URETERS: Markedly suboptimal evaluation of the right kidney because of streak artifact. No definite acute abnormality. Normal renal size and position. No hydronephrosis. STOMACH AND BOWEL: Very limited by the very dense barium in the colon. No dilated loops of bowel or evidence for obstruction. No stomach or bowel distention. No focal inflammatory change. PELVIS: APPENDIX: No evidence of acute appendicitis. BLADDER: Unremarkable. REPRODUCTIVE: Normal uterus. No mass. ABDOMEN and PELVIS: INTRAPERITONEAL SPACE: Unremarkable. No ascites or other fluid collection. No free air. BONES/JOINTS: Degenerative changes.. No suspicious lytic or blastic abnormality. SOFT TISSUES: Unremarkable. No discrete abdominal or pelvic wall hernia. VASCULATURE: Unremarkable. Abdominal aorta is non-dilated. LYMPH NODES: Unremarkable. No enlarged lymph nodes. CT/Abdomen/Pelvis W IV Cont ONLY IMPRESSION: 1. Markedly Limited as above. 2. No definite acute abnormality. Electronically Signed: Hay Correa MD at 14:01 EST ,
--- NOTE | 2023-07-31 12:15 | ED.VIS.FEGU ---
HPI HPI - Female History of Present Illness Chief Complaint: Female C/O Detail of Chief Complaint: Abdominal pain Informant: patient Narrative Narrative: Patient presents the emergency department with complaint of abdominal pain that started 9 days ago after she had a bilateral salpingo-oophorectomy with Dr. Phill Osei. Patient states that she had a very large ovarian cyst. Since that time she is having pain with movement. She has had no fever or vomiting. She denies urinary symptoms. Patient states that she called the PRIVATE ADVISOR's office and was told to come to the ER to get evaluated and get a CT scan of her abdomen. [facility] Medical History (Updated 07/31/23 @ 15:[address] Jennifer Shea, DO) Anxiety and depression Arthritis Back problem Bladder disease Breast lump in female Gastric reflux Gastrointestinal problem GERD (gastroesophageal reflux disease) High cholesterol History of echocardiogram History of hiatal hernia History of stress test IBS (irritable bowel syndrome) Post-menopausal Wears glasses Home Medications omeprazole 40 mg capsule,delayed release 40 mg PO BID 10/23/17 [History Last Taken 07/22/23] citalopram 30 mg capsule 40 mg PO DAILY 03/25/23 [History Last Taken 07/21/23] rosuvastatin 5 mg tablet 5 mg PO DAILY 03/25/23 [History Last Taken 07/22/23] naproxen 500 mg tablet 500 mg PO BID PRN PRN Pain #30 tabs 07/22/23 [Rx Last Taken Unknown] oxycodone-acetaminophen 5 mg-325 mg tablet (Percocet) 1 tab PO Q6H PRN pain 7 days #10 tabs 07/22/23 [Rx Last Taken Unknown] cephalexin 500 mg capsule 500 mg PO Q6 #28 CAPSULES 07/31/23 [Rx Last Taken Unknown] oxycodone-acetaminophen 5 mg-325 mg tablet (Percocet) 1 tab PO Q8H PRN pain 3 days #14 tabs 07/31/23 [Rx Last Taken Unknown] Allergy/AdvReac Type Severity Reaction Status Date / Time bupropion [From Wellbutrin] Allergy Hives Verified 07/31/23 11:29 Family History Father Heart disease Depression (emotion) Suicide attempt Grandfather Heart disease Sister Arthritis Grandmother Breast cancer Surgical History History of tubal ligation Hx of cholecystectomy S/P BSO (bilateral salpingo-oophorectomy) Social History current occupational status: retired Smoking Status: Never smoker alcohol intake: current details: social substance use type: does not use caffeine: Yes what type of physical activity do you participate in: none seatbelt use: always do you feel safe at home: Yes additional social history: sig other- Jeovany DOES NOT USE ASPIRIN DOES USE IBUPROFEN ROS ROS ED Review of Systems ROS Unobtainable: other Constitutional Constitutional ED: Reports lethargy; Denies chills, fever(s), sweats or weight loss Eyes Eyes: Denies blurry vision, change in vision or diplopia ENT ENT ED: Denies rhinorrhea or sore throat Cardiovascular Cardiovascular: Denies chest pain, orthopnea or racing heartbeat Respiratory/Chest Respiratory/Chest: Denies cough, dyspnea, dyspnea on exertion, orthopnea or sputum Gastrointestinal Gastrointestinal: Reports abdominal pain; Denies diarrhea, nausea or vomiting Genitourinary Genitourinary ED: Denies dysuria, hematuria or urinary frequency Musculoskeletal Musculoskeletal: Denies arthralgias, back pain, myalgias or neck pain Integumentary Denies abscess, Abrasions or rash Neurologic Neurologic: Denies headache(s) or weakness Psychiatric Psychiatric: Denies anxiety, depression or suicidal thoughts Endocrine Endocrinology: Denies polydipsia, polyphagia or polyuria Hematologic/Lymphatic Hematologic/Lymphatic: Denies easy bleeding, easy bruising or lymphadenopathy Allergic/Immunologic Allergic/Immunologic ED: Denies mouth swelling, tongue swelling or urticaria EXAM Physical Exam Const Vital Signs: 07/31/23 11:29 07/31/23 11:51 07/31/23 15:16 Temperature 96.7 F L 96.7 F L Temperature Source Temporal Temporal Pulse Rate 70 70 64 Respiratory Rate 18 18 16 Blood Pressure 142/94 H 142/94 H 138/65 H Blood Pressure Mean 110 110 89 Pulse Ox 100 100 Oxygen Delivery Method Room Air Room Air Positive well nourished and well developed General Appearance ED: well developed and NAD HEENT Reports TM's clear and moist mucous membranes normocephalic and atraumatic; Negative for trauma or tenderness Tympanic Membrane ED: Yes TM's clear Eyes PERRL and EOMs intact bilaterally General Eye ED: Negative for pale conjunctiva or scleral icterus Neck no lymphadenopathy, supple and no JVD General: Negative for tenderness Chest Wall inspection of chest normal and palpation of chest normal Chest: Negative for tenderness Resp normal respiratory effort and clear to auscultation bilaterally Effort and Inspection: Negative for respiratory distress or pain with movement Auscultation: Negative for rhonchi, wheezes or diminished lung sounds Cardio regular rate, regular rhythm, S1 normal heart sound, S2 normal heart sound and no murmurs Peripheral Pulses: pulses 2+ throughout GI normal to inspection, nondistended, normoactive bowel sounds, soft to palpation, non-distended and no masses GI Narrative: Tender to palpation over the suprapubic region. There is some periumbilical erythema noted. There are some bruising to the port sites to the right lower quadrant and left lower abdomen but no evidence of drainage or cellulitis. Back/Spine no CVA tenderness and no thoracic nor lumbar tenderness Extremity normal to inspection General Extremety ED: Negative for edema General Extremity: Negative for edema Neuro oriented x3, CN's II-XII intact bilaterally, no sensory deficits noted and gait normal Sensorium / Orientation: awake, alert, oriented to person, oriented to place and oriented to time Motor Exam: strength 5/5 throughout and strength abnormal Psych mental status grossly normal Skin no rashes or lesions noted and no wounds MDM MDM MDM Narrative Medical decision making narrative: Patient presents to the emergency department with postop pain after having bilateral salpingo-oophorectomy 9 days ago. She denies fevers or chills or sweats. She called her PRIVATE ADVISOR who had a another physician covering and was instructed to come to the ER to get evaluated and get a CAT scan. Patient had an IV line established. CBC with differential obtained showed a white count of 5.9 with hemoglobin 12.3 and platelet count of 280. Chemistries unremarkable. Patient had just had a upper GI with barium yesterday. CT scan obtained of the abdomen pelvis limited due to beam artifact related to the barium. There were however no significant abnormalities within the abdomen or pelvis. There is no free fluid or evidence of abscess or bowel obstruction or perforation. Discussed case with PRIVATE ADVISOR on-call Dr. Guido who would like patient to follow-up with their office later this week or early next week she has an appointment coming up. Patient comfortable with plan. Clinically she looks well. I do not feel she needs antibiotics and do not see any significant cellulitic changes. Advised to return if increasing pain, fever, vomiting, increased redness or cellulitic changes to the abdomen or condition worsening way. Lab Data Attestation: I reviewed the patient's lab results. Labs: Laboratory Results - last 24 hr 07/31/23 12:50 WBC 5.9 RBC 3.76 L Hgb 12.3 Hct 37.4 MCV 99.5 H MCH 32.7 H MCHC 32.9 RDW Std Deviation 45.5 H RDW Coeff of Whitney 12.5 Plt Count 280 MPV 8.8 Immature Gran % (Auto) 0.200 Neut % (Auto) 63.8 Lymph % (Auto) 25.1 [place] % (Auto) 7.9 Eos % (Auto) 2.2 Baso % (Auto) 0.8 Absolute Neuts (auto) 3.8 Absolute Lymphs (auto) 1.49 Nucleated RBC % 0 Sodium 141 Potassium 4.1 Chloride 111 H Carbon Dioxide 28.0 Anion Gap 2 L BUN 14 Creatinine 0.79 Estim Creat Clear Calc 59.28 Est GFR (MDRD) Af Amer 92 Est GFR (MDRD) Non-Af 76 BUN/Creatinine Ratio 17.7 Glucose 91 Calcium 9.1 Radiography Diagnostic Testing: Clinical Impression(s) from Imaging Studies Abdomen/Pelvis CT 07/31/23 12:14 IMPRESSION: 1. Markedly Limited as above. 2. No definite acute abnormality. Electronically Signed: Hay Correa MD at 14:01 EST , Discharge Plan Triage Chief Complaint: Female C/O ED Provider: Jennifer Shea Dx/Rx/DC Orders Clinical Impression: Post-op pain Instructions: ED Post Op Wound Check, Pain Prescriptions: New cephalexin [cephalexin] 500 mg capsule 500 mg PO Q6 Qty: 28 0RF oxycodone-acetaminophen [Percocet] 5-325 mg tablet 1 tab PO Q8H PRN (Reason: pain) 3 Days Qty: 14 0RF No Action omeprazole 40 mg capsule,delayed release(DR/EC) 40 mg PO BID citalopram 30 mg capsule 40 mg PO DAILY rosuvastatin 5 mg tablet 5 mg PO DAILY oxycodone-acetaminophen [Percocet] 5-325 mg tablet 1 tab PO Q6H PRN (Reason: pain) 7 Days Qty: 10 0RF naproxen [naproxen] 500 mg tablet 500 mg PO BID PRN PRN (Reason: Pain) Qty: 30 1RF Primary Care Provider: Nikhil Cheng Referrals: Nikhil Cheng MD [Primary Care Provider] - Monica Torres MD [Med Staff - Active Staff] - 3-5 Days Disposition Disposition: Home, Self Care Discharge Date/Time: 07/31/23 15:21 Capacity Legal Sewer [employer] Reflex Medical hold order details:: IF a medical hold is selected below, a suggested order for a MEDICAL HOLD will reflex upon signing the document. Next of kin: [place] law dictates a PRIORITY LIST for identifying legal decision-maker/legal next of kin in the following order (LNOK): 1st: The patient?s legal guardian, if any 2nd: The patient's spouse (if status is questionable, consult Risk Management) 3rd: The patient?s adult child(casper) (majority, if multiple children) 4th: The patient?s parents 5th: The patient?s adult siblings (majority, if multiple children siblings)
--- OUTSIDE RECORDS SUMMARY | 2023-07-31 12:47 | XMS RPT_ITS | CCD ---
Author Name Unknown Address [address] [place] [address] Organization [facility] Care Team Providers Care Stockroom Selector Name Role Phone Darrin Umana MD Primary Care Provider DARRIN UMANA Primary Care Unavailable Jennie Salinas Referring Unavailable DARRIN UMANA Primary Care Unavailable Jennie Salinas Attending Unavailable ETHEL BELTRÁN Referring Unavailable DARRIN UMANA Primary Care Unavailable ANDREINA WARE Attending Unavailable ETHEL BELTRÁN Attending Unavailable DARRIN UMANA Primary Care Unavailable Allergies Allergy Classification Reported Allergen(s) Allergy Type Date of Onset Reaction(s) Facility (4 sources) buPROPion; Translations: [BUPROPION HCL] Drug Allergy 03-24-2010 [facility] (4 sources) Citalopram; Translations: [CITALOPRAM HYDROBROMIDE] Drug Allergy 03-24-2010 [facility] Medications Completed/Discontinued Medications Medication Drug Class(es) [...] obstruction or gangrene; Translations: [Hiatal hernia] Onset: 4 Episodic Disorders of lipid metabolism (3 sources) [...] 14:10-0500 Diastolic blood pressure 75 mm[Hg] Jennie Salinas MD Work Phone: [facility] 06-28-2023 14:10-0500 Heart rate 70 /min Jennie Salinas MD Work Phone: [facility] 06-28-2023 14:10-0500 SaO2% (BldA) [Mass fraction] 99 % Jennie Salinas MD Work Phone: [facility] 06-28-2023 14:10-0500 Systolic blood pressure 181 mm[Hg] Jennie Salinas MD Work Phone: [facility] 06-28-2023 13:53-0500 Body temperature 97.3 [degF] Jennie Salinas MD Work Phone: [facility] 06-28-2023 13:53-0500 Respiratory rate 14 /min Jennie Salinas MD Work Phone: [facility] 06-28-2023 12:39-0500 Body height 152.4 cm Jennie Salinas MD Work Phone: [facility] 06-28-2023 12:39-0500 Body weight 74.84 kg Jennie Salinas MD Work Phone: [facility] 05-14-2023 14:41-0400 Body height 152.4 cm Ethel Beltrán MD Work Phone: [facility] 05-14-2023 14:41-0400 Body temperature 99.19 [degF] Ethel Beltrán MD Work Phone: [facility] 05-14-2023 14:41-0400 Body weight 77.2 kg Ethel Beltrán MD Work Phone: [facility] 05-14-2023 14:41-0400 Diastolic blood pressure 74 mm[Hg] Ethel Beltrán MD Work Phone: [facility] 05-14-2023 14:41-0400 Heart rate 69 /min Ethel Beltrán MD Work Phone: [facility] 05-14-2023 14:41-0400 SaO2% (BldA) [Mass fraction] 97 % Ethel Beltrán MD Work Phone: [facility] 05-14-2023 14:41-0400 Systolic blood pressure 140 mm[Hg] Ethel Beltrán MD Work Phone: [facility] Encounters Encounter Date Encounter Type Care Provider Facility Start: 07-19-2023 End: 07-20-2023 ambulatory DARRIN UMANA Facility:[facility] Start: 07-16-2023 End: 07-17-2023 ambulatory DARRIN JENNIEMichele UMANA Facility:[facility] Start: 06-28-2023 End: 06-28-2023 ambulatory ETHEL BELTRÁN Facility:[facility] Start: 06-28-2023 End: 06-28-2023 Subsequent hospital visit by physician Jennie Salinas MD Work Phone: Gastroenterology Procedures Date Procedure Procedure Detail Performing Clinician Start: 06-28-2023 Colonoscopy flx dx w/collj spec when pfrmd Ethel Beltrán MD Work Phone: Start: 06-28-2023 Esophagogastroduodenoscopy transoral diagnostic Ethel Beltrán MD Work Phone: Start: 06-28-2023 Colonoscopy Jennie Salinas MD Work Phone: Start: 03-14-2016 Colonoscopy Ethel Beltrán MD Work Phone: Start: 03-03-2015 Lipid 1996 panel - Serum or Plasma Gabby Beltrán MD Work Phone: Plan of Treatment Date Care Activity Detail Author Start: 06-28-2033 Screening for malignant neoplasm of colon [facility] Start: 03-14-2026 Colonoscopy Colonoscopy [facility] Start: 03-14-2026 Colorectal Cancer Screening Colorectal Cancer Screening [facility] Start: 03-15-2023 Covid-19 Vaccine () Covid-19 Vaccine () [facility] Start: 03-15-2023 Influenza vaccination Influenza Vaccine (#1) [facility] Start: 07-15-2022 Advance Directive Discussion Advance Directive Discussion [facility] Start: 12-05-2020 Diabetes Screening Diabetes Screening [facility] Start: 03-03-2020 Lipid 1996 panel - Serum or Plasma Lipid Screening [facility] Start: 03-03-2020 Lipid panel Lipid Screening [facility] Start: 2017 Pneumococcal Vaccine: 65+ (1 - PCV) Pneumococcal Vaccine: 65+ (1 - PCV) [facility] Start: 2017 Pneumococcal Vaccine: 65+ (1 of 1 - PCV) Pneumococcal Vaccine: 65+ (1 of 1 - PCV) [facility] Start: 03-03-2016 Mammography Mammogram Screening [facility] Start: 03-03-2016 Screening for malignant neoplasm of breast Mammogram Screening [facility] Start: 2012 RSV Vaccine (1 - 1-dose 60+ series) RSV Vaccine (1 - 1-dose 60+ series) [facility] Start: 11-26-2006 Urine microalbumin profile DTaP,Tdap,Td Vaccine (1 - Tdap) [facility] Start: 2002 Shingrix Vaccine (1 of 2) Shingrix Vaccine (1 of 2) [facility] Start: 1997 Cologuard (FIT-DNA) Cologuard (FIT-DNA) [facility] Start: [address] Colonography [facility] Start: 1997 Fecal Occult Blood Fecal Occult Blood [facility] Start: 1997 Screening for malignant neoplasm of colon [facility] Start: 1997 Sigmoidoscopy Sigmoidoscopy [facility] Start: 1970 Hepatitis C Screening Hepatitis C Screening [facility] Start: 1970 Hepatitis C screening Hepatitis C Screening [facility] End: 05-14-2024 EGD DIAGNOSTIC EGD DIAGNOSTIC Endoscopy Routine Gastroesophageal reflux disease, unspecified whether esophagitis present 1 Occurrences starting 05/14/2023 until 05/14/2024 Work Phone: Immunizations Immunization Date Immunization Notes Care Provider Fa cili 04-26-2016 influenza, injectabl e, quadrivalent, preservative free Ethel Beltrán MD Work Phone: [facility] Work Phone: 04-26-2016 influenza virus vaccine, unspecified formulation Ethel Beltrán MD Work Phone: [facility] 04-14-2012 influenza virus vaccine, unspecified formulation Ethel Beltrán MD Work Phone: [facility] 11-25-2006 tetanus and diphther ia toxoids, adsorbed, preservative free, for adult use (2 Lf of tetanus toxoid and 2 Lf of diphtheria toxoid) Ethel Beltrán MD Work Phone: [facility] Work Phone: 12-28-1983 tetanus and diphther ia toxoids, adsorbed, preservative free, for adult use (2 Lf of tetanus toxoid and 2 Lf of diphtheria toxoid) Ethel Beltrán MD Work Phone: [facility] Work Phone: 02-07-1973 typhoid vaccine, unspecified formulation Ethel Beltrán MD Work Phone: [facility] Work Phone: 01-28-1973 tetanus and diphther ia toxoids, adsorbed, preservative free, for adult use (2 Lf of tetanus toxoid and 2 Lf of diphtheria toxoid) Ethel Beltrán MD Work Phone: [facility] Work Phone: 01-24-1973 trivalent poliovirus vaccine, live, oral Ethel Beltrán MD Work Phone: [facility] Work Phone: 01-24-1973 typhoid vaccine, unspecified formulation Ethel Beltrán MD Work Phone: [facility] Work Phone: 01-24-1973 vaccinia (smallpox) vaccine, diluted Ethel Beltrán MD Work Phone: [facility] Work Phone: Payers Date Payer Category Payer Medicare HUMANA MEDICARE HUMANA GOLD PLUS [id number] 2018-Present [phone] [address] [address] [place] [address] HMO [id number] 2018 Private Health Insurance [id number] 2017 Medicaid [place] [id number] 2017-Present [phone] [address] [place] [address] Medicaid [id number] 2017 Medicaid [id number] Social History Date Type Detail Facility Tobacco smoking stat us NHIS Never smoked tobacco [facility] Start: 07-21-2020 End: 06-28-2023 Alcohol intake Current drinker of alcohol (finding) [facility] Start: 07-21-2020 End: 05-14-2023 [facility] Start: 07-21-2020 End: 05-14-2023 Tobacco use panel [facility] National Score (1-10 0), lower number is lower risk 67 [facility] Start: 1950 Sex Assigned At Not on file C [facility] Clinical Notes 02-01-2012 to 07-19-2023 Katt Keys RN - 06/28/2023 1:53 PM Zeny Dave RN - 06/28/2023 12:35 PM ESTSedation Documentation - Franklin Rojas RN - 06/28/2023 1:23 PM ESTPatient Instructions Note Date & Type Note Facility 07-19-2023 Note HNO ID: [id number] Author: TAWNY FORRESTER RN Service: ? Author Type: Registered Nurse Type: Progress Notes Filed: 07/19/2023 13:29 Note Text: Name: Amelia Fiore CCF#: [id number] Date: 07/19/2023 ESOPHAGEAL MANOMETRY TEST Indication: Hiatal [...] the test without difficulty. .Tawny Forrester RN [facility] 06-28-2023 Nurse Note AMBULATORY PATIENT EDUCATION [...] In Department: GASTROENTEROLOGY documented in this encounter [facility] 06-28-2023 Miscellaneous Notes Colon started Egd complete documented in this encounter [facility] 05-14-2023 Note HNO ID: [id number] Author: Jamia Cartwright MD, PhD Service: ? Author Type: Physician Type: Progress Notes Filed: 05/14/2023 4:41 PM Note Text: [facility] Gastroenterology AND Hepatology 05/14/2023 Amelia Fiore 72 year old female Referring physician or PCP: SELF Darrin Umana MD Referred by * to the [facility] for opinion regarding * . My final recommendations will be communicated by way of shared Medical Record for internal providers or letter via the [employer] for external providers. SUBJECTIVE: HPI: [...] Procedure Laterality Date COLONOSCOP W/ OR W/O [facility] SPEC 03/14/16 Colonoscopy mac COLONOSCOPY 04/18 [facility] EGD W/O OR W/BRUSH/WASH 05/23/2010 EGD EGD [...] Celexa [Citalopram * Didn't work Wellbutrin [Bupropi* [place] poorly OBJECTIVE: LMP 03/18/2006 No weight on [...] follow-up on refl (more content not included)... [facility] 05-14-2023 Instructions Ethel Beltrán MD - [...] If you do not have a responsible otr refrigerated cdl truck driver (family member or friend) with you [...] exam. 2 06/2019 documented in this encounter [facility] 05-14-2023 History of Presen t illness Narrative [facility] Gastroenterology & Hepatology 05/14/2023 Amelia Fiore 72 year old female Referring physician or PCP: SELF Darrin Umana MD Referred by * to the [facility] for opinion regarding * . My final recommendations will be communicated by way of shared Medical Record for internal providers or letter via the [employer] Service for external providers. SUBJECTIVE: HPI: [...] Procedure Laterality Date COLONOSCOP W/ OR W/O [facility] SPEC 03/14/16 Colonoscopy mac COLONOSCOPY 04/18 [facility] EGD W/O OR W/BRUSH/WASH 05/23/2010 EGD EGD [...] Celexa [Citalopram * Didn't work Wellbutrin [Bupropi* [place] poorly OBJECTIVE: LMP 03/18/2006 No weight on [...] 2023 4:40 PM documented in this encounter [facility] documented as of this encounter (statuses as of 05/15/2023) [facility]07[facility] History of Past illness Narrative* Problem Noted Date Diagnosed Date Resolved Date Abdominal pain, right lower quadrant 02/01/2012 07/18/2012 Routine general medical exam ination at a health care facility 03/24/2010 02/01/2012 Overview: : Established care from Dr. Kee Routine gynecological examination 03/24/2010 02/01/2012 Overview: [facility], [facility] Germaine documented as of this encounter (statuses as of 06/29/2023) [facility] Diagnosis Gastroesophageal reflux disease, unspecified whether esophagitis present- Primary Encounter for screening colonoscopy Special screening for malignant neoplasms, colon Aspiration into airway, initial encounter [facility] Diagnosis Gastroesophageal reflux disease, unspecified whether esophagitis present Encounter for screening colonoscopy Special screening for malignant neoplasms, colon [facility] Outpatient Procedure (Routine) - Pending Review Specialty Diagnoses / Procedures Referred By Vicki yuan Referred To Contact [facility] Diagnoses Encounter for screening colonoscopy Procedures COLONOSCOPY SCREENING COLONOSCOPY FLX DX W/COLLJ SPEC WHEN Ethel Harris MD [address] [place] [address] [facility] [address] [place], [place] [id number] [place] [id number] Referral ID Status Reason Start Date Expiration Date Visits Requested Visits Authorized [id number] Pending Review Auto-Generat ed Referral 3 05/14/2024 1 1 * Outpatient Procedure (Routine) - Pending Review Specialty Diagnoses / Procedures Referred By Contac t Referred To Contact [facility] Diagnoses Gastroesophageal reflux disease, unspecified whether esophagitis present Procedures EGD DIAGNOSTIC ESOPHAGOGASTRODUODENOSC OPY TRANSORAL DIAGNOSTIC Ethel Beltrán MD [address] [place] [address] [address] Referral ID Status Reason Start Date Expiration Date Visits Requested Visits Authorized [id number] Pending Review Auto-Generat ed Referral 3 05/14/2024 1 1 * Outpatient Procedure (Routine) - Pending Review Specialty Diagnoses / Procedures Referred By Contac t Referred To Contact [facility] Diagnoses Gastroesophageal reflux disease, unspecified whether esophagitis present Procedures EGD DIAGNOSTIC ESOPHAGOGASTRODUODENOSC OPY TRANSORAL DIAGNOSTIC Ethel Beltrán MD [address] [place] [address] [facility] [address] [place] [id number] Referral ID Status Reason Start Date Expiration Date Visits Requested Visits Authorized [id number] Pending Review Auto-Generat ed Referral 3 05/14/2024 1 1 [facility] for referral (narrative)* Outpatient Procedure (Routine) - Closed Specialty Diagnoses / Procedures Referred By Contac t Referred To Contact [facility] Diagnoses Encounter for screening colonoscopy Procedures COLONOSCOPY SCREENING COLONOSCOPY FLX DX W/COLLJ SPEC WHEN PFRMD Ethel Beltrán MD [address] [place] [address] [place] [phone] Referral ID Status Reason Start Date Expiration Date V isits Requested Visits Authorized [id number] Closed Auto-Generate d Referral 06/28/2023 07/14/2023 1 1 * Outpatient Procedure (Routine) - Closed Specialty Diagnoses / Procedures Referred By Vicki yuan Referred To Contact [facility] Diagnoses Gastroesophageal reflux disease, unspecified whether esophagitis present Procedures EGD DIAGNOSTIC ESOPHAGOGASTRODUODENOSC OPY TRANSORAL DIAGNOSTIC Ethel Beltrán MD [address] [place] [phone] Jennie Salinas MD [address] [place] [address] Referral ID Status Reason Start Date Expiration Date V isits Requested Visits Authorized [id number] Closed Auto-Generate d Referral 06/28/2023 07/14/2023 1 1 [facility] for visit Narrative* Outpatient Procedure (Routine) - Closed Specialty Diagnoses / Procedures Referred By Vicki yuan Referred To Contact [facility] Diagnoses Encounter for screening colonoscopy Procedures COLONOSCOPY SCREENING COLONOSCOPY FLX DX W/COLLJ SPEC WHEN PFRMD Ethel Beltrán MD [address] [place] [address] [place] [address] Referral ID Status Reason Start Date Expiration Date V isits Requested Visits Authorized [id number] Closed Auto-Generate d Referral 06/28/2023 07/14/2023 1 1 [facility] Summary Purpose Family History No Family History Records FoundNo Family History Records Found Advance Directives No Advanced Directives Records FoundNo Advanced Directives Records Found Additional Source Comments INFORMATION SOURCE (unrecogn ized section and content) DATE CREATED AUTHOR AUTHOR'S ORGANIZ ATION 07/23/2023 [facility] Source Comments (unrecognize d section and content) In the event this informatio n is protected by the Federal Confidentiality of Alcohol and Drug Abuse Patient Records regulations: The Federal rules restrict any use of the information to criminally investigate or prosecute any alcohol or drug abuse patient.[facility] the event this information is protected by the Federal Confidentiality of Alcohol and Drug Abuse Patient Records regulations: The Federal rules restrict any use of the information to criminally investigate or prosecute any alcohol or drug abuse patient.[facility] Reason for Visit (unrecogniz ed section and content) Care Teams (unrecognized sec tion and content) Stockroom Selector Relationship Specialty Start Date End Date Darrin [...] BE BASED ON THE PRIMARY CLINICAL RECORDS. [employer] [facility]. provides no warranty or guarantee of the accuracy or completeness of information in this document.
[2023-07-31 13:01] LABS: Absolute Lymphocyte Count 1.49 X10^3/uL (0.83-4.51); Absolute Neutrophil Count 3.8 X10^3/uL (2.0-7.7); Basophil# 0.05 X10^3/uL; Basophil% 0.8 % (0-1); Eosinophil# 0.13 X10^3/uL; Eosinophils% 2.2 % (0-5); Hematocrit 37.4 % (37-47); Hemoglobin 12.3 g/dL (12.0-15.0); Lymphocyte # 1.49 X10^3/ul (0.83-4.51); Lymphocyte % 25.1 % (19-41); Mean Corp Hgb Conc 32.9 g/dL (32-36); Mean Corpuscular Hgb 32.7 pg (27.0-32.0); Mean Corpuscular Volume 99.5 fL (81-99); Mean Platelet Vol. 8.8 fl (6.2-12.0); Monocyte# 0.47 X10^3/uL; Monocyte% 7.9 % (0-10); NRBC Flagged by Analyzer 0 % (0-5); Neutrophil # 3.78 X10^3/uL (2.7-7.7); Neutrophil % 63.8 % (47-70); Platelet Count 280 K/mm3 (150-450); RBC Distribution Width CV 12.5 % (11.6-14.6); RBC Distribution Width SD 45.5 fl (35.1-43.9); Red Blood Count 3.76 M/mm3 (4.2-5.4); White Blood Count 5.9 K/mm3 (4.4-11.0)
[2023-07-31 13:12] LABS: Anion Gap 2 (5-15); BUN 14 mg/dL (7-18); BUN/Creat Ratio 17.7 RATIO (10-20); Calcium,Total 9.1 mg/dL (8.5-10.1); Chloride 111 mmol/L (98-107); Creatinine, Serum 0.79 mg/dL (0.55-1.02); EST Glomerular Filtration Rate 76 mL/min (>60); Est Glom Filt Rate - Afr Amer 92 mL/min (>60); Estimated Creatinine Clearance 59.28 ml/min; Glucose 91 mg/dL (74-106); Potassium 4.1 mmol/L (3.5-5.1); Sodium Level 141 mmol/L (136-145)
[2023-07-31 15:16] VITALS: BP 138/65; PULSE 64; RESP 16
== END 2023-07-31 15:21 | disposition home or self-care (01) ==
PROVIDERS: Emergency Provider Emergency Medicine; PCP Family Medicine; Visit Provider Emergency Medicine
DX: G89.18 Other acute postprocedural pain (principal); Z90.722 Acquired absence of ovaries, bilateral; K21.9 Gastro-esophageal reflux disease without esophagitis; E78.00 Pure hypercholesterolemia, unspecified; F41.8 Other specified anxiety disorders; Z79.899 Other long term (current) drug therapy; Z90.49 Acquired absence of other specified parts of digestive tract
CPT/HCPCS: 74177; 80048; 85025; 99284; Q9967; A4216

== ENCOUNTER → 2024-05-11 | Outpatient (CLI) | payer MEDICARE, MEDICAID, SELFPAY ==
[2024-05-11 12:28] LABS: ALB/GLOB Ratio 1.2 RATIO (0.9-2.4); AST(SGOT) 31 U/L (15-37); Alanine Aminotransfer ALT/SGPT 34 U/L (13-56); Albumin, Serum 3.6 g/dL (3.2-5.0); Alkaline Phosphatase 106 U/L (45-117); Anion Gap 3 (5-15); BUN 12 mg/dL (7-18); BUN/Creat Ratio 14.3 RATIO (10-20); Calcium,Total 8.6 mg/dL (8.5-10.1); Chloride 107 mmol/L (98-107); Cholesterol 207 mg/dL (200); Creatinine, Serum 0.84 mg/dL (0.55-1.02); EST Glomerular Filtration Rate 71 mL/min (>60); Est Glom Filt Rate - Afr Amer 86 mL/min (>60); Globulin 3.1 g/dL (2.2-4.2); Glucose 88 mg/dL (74-106); High Density Lipoprotein 81 mg/dL; Potassium 4.1 mmol/L (3.5-5.1); Protein, Total 6.7 g/dL (6.4-8.2); Sodium Level 138 mmol/L (136-145); Triglycerides 197 mg/dL; Very Low Density Lipoprotein 39 mg/dL (5-40)
== END | disposition home or self-care (01) ==
LOC: MFPLAB 10:59
PROVIDERS: PCP Family Medicine; Visit Provider Family Medicine
DX: E78.00 Pure hypercholesterolemia, unspecified (principal)
CPT/HCPCS: 36415; 80053; 80061

== ENCOUNTER → 2024-11-11 | Outpatient (CLI) | payer MEDICARE, MEDICAID, SELFPAY ==
[2024-11-11 14:04] LABS: ALB/GLOB Ratio 1.5 RATIO (0.9-2.4); AST(SGOT) 29 U/L (<=31); Alanine Aminotransfer ALT/SGPT 28 U/L (<=34); Albumin, Serum 4.1 g/dL (3.4-4.8); Alkaline Phosphatase 106 U/L (35-104); Anion Gap 11 (5-15); BUN 17 mg/dL (4-19); BUN/Creat Ratio 22.2 RATIO (10-20); Calcium,Total 8.8 mg/dL (7.6-11.0); Carbon Dioxide 24.9 mmol/L (21.0-32.0); Chloride 107 mmol/L (98-108); Cholesterol 219 mg/dL (<=200); Creatinine, Serum 0.75 mg/dL (0.70-1.20); EST Glomerular Filtration Rate 85 (>60); Globulin 2.7 g/dL (2.2-4.2); Glucose 80 mg/dL (70-99); High Density Lipoprotein 76 mg/dL; Low Density Lipoprotein Calc. 119 mg/dL; Protein, Total 6.7 g/dL (5.9-8.4); Sodium Level 143 mmol/L (133-145); Triglycerides 118 mg/dL; Very Low Density Lipoprotein 24 mg/dL (5-40); cholesterol:hdl ratio screen 2.88
== END | disposition home or self-care (01) ==
LOC: MFPLAB 10:20
PROVIDERS: PCP Family Medicine; Referring Provider Family Medicine; Visit Provider Family Medicine
DX: E78.00 Pure hypercholesterolemia, unspecified (principal)
CPT/HCPCS: 36415; 80053; 80061

== ENCOUNTER → 2025-01-05 | Outpatient (CLI) | payer MEDICARE, MEDICAID, SELFPAY ==
--- NOTE | 2025-01-05 12:25 | BI_ITS ---
EXAM: SCRN MAMM (CAD)W/DAINA BILAT DATE: 01/05/2025 CLINICAL HISTORY: F, Age 74 y/o , SCREENING TECHNIQUE: SCRN MAMM (CAD)W/DAINA BILAT COMPARISON: Prior exam(s) were compared FINDINGS: TISSUE DENSITY: The breast tissue is composed of scattered areas of fibroglandular density. Bilateral Breast Mammographic Findings: No suspicious masses, calcifications or other abnormalities are identified. BI/SCRN MAMM (CAD)W/DAINA BILAT IMPRESSION: No mammographic evidence of malignancy in either breast OVERALL FINAL ASSESSMENT BI-RADS 1: NEGATIVE. RECOMMEND ANNUAL MAMMOGRAPHIC SCREENING. RECOMMENDATION: Routine annual follow-up in 1 Year A letter with findings and recommendations will be mailed to the patient. Reading Location: [id number]
== END | disposition home or self-care (01) ==
LOC: OPBI 12:22
PROVIDERS: PCP Family Medicine; Referring Provider Family Medicine; Visit Provider Family Medicine
DX: Z12.31 Encounter for screening mammogram for malignant neoplasm of breast (principal)
CPT/HCPCS: 77063; 77067